=== PATIENT | female | born 1960 | race Caucasian/White ===

== ENCOUNTER 2023-12-15 12:25 | Outpatient (RCR) | payer OTHER, SELFPAY ==
[2023-12-15] MEDS: ACTEMRA 100 MG IV (13:21)
[2023-12-15 13:28] VITALS: BP 133/54
== END 2023-12-29 23:59 | disposition home or self-care (01) ==
LOC: OID 12:25
PROVIDERS: ATTENDING PHYSICIAN Internal Medicine; FAMILY PHYSICIAN Family Medicine
DX: M05.79 Rheumatoid arthritis with rheumatoid factor of multiple sites without organ or systems involvement (principal)
CPT/HCPCS: 96413; J3262

== ENCOUNTER 2023-12-23 11:50 | Emergency (ER) | payer OTHER, SELFPAY ==
[2023-12-23 11:52] VITALS: BP 154/93
[2023-12-23 12:36] VITALS: BMI 43.4
--- NOTE | 2023-12-23 13:20 | EDRN ---
Earl DEWITT w/ pt at this time.
[2023-12-23 13:29] VITALS: BP 137/54
[2023-12-23] MEDS: PERCOCET 5/325 1 TABLET PO (13:41)
--- NOTE | 2023-12-23 14:01 | ED.GENMED ---
History of Present Illness
General
Chief Complaint: Musculo-Skeletal Complaint
Source: patient
Exam Limitations: none
Time Seen by Provider: 12/23/23 13:15
Nursing documentation reviewed up to this point in time: agreed with
Travel History
Have you had any contact with someone who has COVID-19?: No
Do you have any symptoms of coronavirus? Fever > 100 degrees, chills, cough, shortness of breath, sore throat, loss of taste or smell, muscle aches, or headache?: No
History of Present Illness
History of Present Illness:
63-year-old female with past medical history of diabetes, hypothyroidism, ovarian cyst, asthma presenting to the emergency department today with concerns of right-sided knee discomfort after feeling a popping sensation last night as well as this
morning also EMS noticed a popping sensation when transferring her today. She has had multiple knee surgeries in the past. Denies any additional symptoms or concerns no fevers or systemic symptoms no numbness or weakness
Past History
Past History
ED Past Medical History: HTN, Hypercholesterolemia, Hypothyroidism and Other (Arthritis)
ED Past Surgical History: Orthopedic
Social History
Tobacco: Non-smoker
Alcohol: None
Drug: None
Personal: Single
Living: alone
Employment: Other
Family History
Family History: Other
Review of Systems
Review of Systems
Allergies reviewed?: Yes
All Other Systems: ROS reviewed and negative except as documented in HPI and ROS
Phy Exam
Physical Exam
Physical Exam:
GENERAL: Alert , in no apparent distress
EYE: pupils equal and reactive
NECK: Supple, no significant adenopathy.
ENT: o/p clr, mmm.
CARDIAC: Regular rate and rhythm .
LUNGS: Clear breath sounds bilaterally, no acute respiratory distress, no wheezes/rales/rhonchi
ABDOMEN: Soft, without focal tenderness, no r/g, no cvat
NEUROLOGICAL: Alert and oriented, no focal neuro deficits
SKIN: Warm and dry, skin intact.
MUSCULOSKELETAL: Female minimal swelling to the right knee able to range at the knee.. No popping sensation. Normal distal pulses normal ankle and hip examination a, well perfused.
PSYCH: Normal and appropriate interaction.
Course
Orders/Labs/Results
Orders:
Orders
12/23/23 12:02
CR Knee- Right 4 Or More View* Urgent
Comment:
Reason For Exam: pain, 'felt a pop'
12/23/23 13:26
Knee Immobilizer Right-Treatme ONCE
Walker [Treatment- Walker] ONCE
Oxycodone/Acetaminophen [Percocet 5/325] 1 tablet PO NOW STA
Vital Signs
Initial and Last Documented VS:
Initial Vital Signs
Temp Pulse Resp BP Pulse Ox
98.3 F 73 18 154/93 98
12/23/23 11:52 12/23/23 11:52 12/23/23 11:52 12/23/23 11:52 12/23/23 11:52
Last Documented Vital Signs
Temp Pulse Resp BP Pulse Ox
98.3 F 67 16 137/54 97
12/23/23 11:52 12/23/23 13:29 12/23/23 13:29 12/23/23 13:29 12/23/23 13:29
MDM/Problems Addressed
MDM/Problems Addressed:
63-year-old female presenting to the emergency department with concern of popping sensation to the knee on the right side last night and today. Also has had ongoing pain. Has had multiple knee replacements. Here x-ray without signs of acute
abnormality examination reveals small mount of swelling but good range of motion no evidence of septic arthritis considering the abrupt nature and popping sensation septic arthritis seems to be very unlikely culprit of patient's symptoms at this
time I feel she does not require a tap at this time. Patient was put in a knee immobilizer and able to ambulate she was advised for close orthopedic follow-up return precautions given.
*Critical Care Note
Total Time (30-74mins, 75-104mins- exclusive of procedures): Not Applicable
ED Attending Note
-
Portions of this chart may have been created with voice recognition software.� Occasional wrong word or��sound alike� substitutions may have occurred due to the inherent limitations of voice recognition software.
Discharge Plan
Departure
Patient Disposition: Home (Routine Discharge)
Date of Disposition: 12/23/23
Time of Disposition: 14:32
Patient with high blood pressure during this ER visit?: No
Condition: Good
Covid-19: Not Applicable
Discharge Problem:
Pain in right knee
Instructions: Knee Immobilizer (DC), Knee Pain (DC)
Prescriptions:
New
oxycodone-acetaminophen [Percocet] 5-325 mg tablet
1 tab PO Q6H PRN (Reason: Pain) Qty: 7 0RF
No Action
multivitamin [Multi-Day] 1 EACH tablet
0.5 tab PO BID
methotrexate sodium 2.5 MG tablet
20 mg PO .WEEKLYSUN
aspirin 81 MG tablet,chewable
81 mg PO DAILY
metformin 1,000 MG tablet extended release 24hr
1,000 mg PO BID
cholecalciferol (vitamin D3) 1,000 UNITS tablet
1,000 units PO HS
levothyroxine 125 MCG tablet
125 mcg PO DAILY
escitalopram oxalate 10 MG tablet
10 mg PO HS
meloxicam [Mobic] 15 MG tablet
15 mg PO DAILY
gabapentin 300 MG capsule
300 mg PO DAILY
fexofenadine [Lizet] 180 MG tablet
180 mg PO HS
omeprazole 40 MG capsule,delayed release(DR/EC)
40 mg PO DAILY
simvastatin 40 MG tablet
40 mg PO HS
omega 7-ded-aun-fish oil [Fish Oil] 1 EACH capsule
1 ea PO HS
Folic Acid 0.8 MG Tablet
0.8 mg PO DAILY
cyanocobalamin (vitamin B-12) 1,000 MCG tablet
1,000 mcg PO DAILY
amlodipine 10 MG tablet
10 mg PO HS
zolpidem 10 MG tablet
10 mg PO HS
losartan-hydrochlorothiazide 1 EACH tablet
1 ea PO DAILY
melatonin 5 MG tablet
5 mg PO HS
Actemra
800 mg INFUSION MONTHLY
Patient Comments:
800 MG
nitroglycerin 0.4 MG tablet, sublingual
0.4 mg sublingual [id number] PRN (Reason: chest pain) Qty: 25 5RF
Ozempic 0.25 mg or 0.5 mg(2 mg/1.5 mL) Pen Injector
0.5 mg SC QWEEK
Patient Comments:
every
Rx Instructions:

Referrals:
Darlyn Carbajal MD [Family Provider] -
Activity Restrictions/Additional Instructions:
You came to the emergency department today with concerns of knee discomfort. Here your x-ray looks fine but there is likely an issue with your hardware. Please follow closely with [facility] and use the protective devices you are provided in the
meantime. Return to the emergency department for any worsening, new or concerning symptoms.
Interventions
Interventions:
*Risk Screen - Suicide Last Done: 12/23/23 12:10
*General Assessment Last Done: 12/23/23 11:52
*Neglect/Abuse Screening Last Done: 12/23/23 12:10
ED- Fall Risk Assessment Last Done: 12/23/23 12:10
*ED COVID-19 Vaccine History Last Done: 12/23/23 11:52
ED-Musculoskeletal Assessment Last Done: 12/23/23 12:36
--- NOTE | 2023-12-23 14:34 | EDRN ---
Earl Henley PA w/ pt at this time. Pt states since percocet pain has decreased from 07/10 to 03/09.
== END 2023-12-23 14:45 | disposition home or self-care (01) ==
LOC: EMR 11:50
PROVIDERS: EMERGENCY PHYSICIAN Emergency Medicine; FAMILY PHYSICIAN Family Medicine
DX: M25.561 Pain in right knee (principal)
CPT/HCPCS: 99283; 29505; 73564

== ENCOUNTER 2024-01-12 12:35 | Outpatient (RCR) | payer OTHER, SELFPAY ==
[2024-01-12 13:06] VITALS: BMI 42.8
[2024-01-12 13:12] VITALS: BP 128/58
[2024-01-12] MEDS: ACTEMRA 100 MG IV (13:17)
[2024-01-12 14:25] VITALS: BP 126/48
== END 2024-01-13 10:27 | disposition home or self-care (01) ==
LOC: OID 12:35
PROVIDERS: ATTENDING PHYSICIAN Internal Medicine; FAMILY PHYSICIAN Family Medicine
DX: M05.79 Rheumatoid arthritis with rheumatoid factor of multiple sites without organ or systems involvement (principal)
CPT/HCPCS: 96413; J3262

== ENCOUNTER 2024-03-08 12:30 | Outpatient (RCR) | payer OTHER, SELFPAY ==
[2024-03-08 13:05] VITALS: BP 126/55
[2024-03-08] MEDS: ACTEMRA 100 MG IV (13:15)
== END 2024-03-09 10:08 | disposition home or self-care (01) ==
LOC: OID 12:30
PROVIDERS: ATTENDING PHYSICIAN Internal Medicine; FAMILY PHYSICIAN Family Medicine
DX: M05.79 Rheumatoid arthritis with rheumatoid factor of multiple sites without organ or systems involvement (principal)
CPT/HCPCS: 96365; J3262

== ENCOUNTER 2024-04-04 12:33 | Outpatient (RCR) | payer OTHER, SELFPAY ==
[2024-04-04 13:00] VITALS: BP 121/44
[2024-04-04] MEDS: ACTEMRA 100 MG IV (13:24)
== END 2024-04-05 08:50 | disposition home or self-care (01) ==
LOC: OID 12:33
PROVIDERS: ATTENDING PHYSICIAN Internal Medicine; FAMILY PHYSICIAN Family Medicine
DX: M05.79 Rheumatoid arthritis with rheumatoid factor of multiple sites without organ or systems involvement (principal)
CPT/HCPCS: 96365; J3262

== ENCOUNTER 2024-05-15 13:23 | Outpatient (RCR) | payer OTHER, SELFPAY ==
[2024-05-15] MEDS: ACTEMRA 100 MG IV (13:53)
[2024-05-15 13:58] VITALS: BP 128/66
== END 2024-05-16 08:16 | disposition home or self-care (01) ==
LOC: OID 13:23
PROVIDERS: ATTENDING PHYSICIAN Internal Medicine; FAMILY PHYSICIAN Family Medicine
DX: M05.79 Rheumatoid arthritis with rheumatoid factor of multiple sites without organ or systems involvement (principal)
CPT/HCPCS: 96365; J3262

== ENCOUNTER 2024-06-12 12:31 | Outpatient (RCR) | payer OTHER, SELFPAY ==
[2024-06-12] MEDS: ACTEMRA 100 MG IV (13:37)
[2024-06-12 13:43] VITALS: BP 143/44
== END 2024-06-13 08:13 | disposition home or self-care (01) ==
LOC: OID 12:31
PROVIDERS: ATTENDING PHYSICIAN Internal Medicine; FAMILY PHYSICIAN Family Medicine
DX: M05.79 Rheumatoid arthritis with rheumatoid factor of multiple sites without organ or systems involvement (principal)
CPT/HCPCS: 96365; J3262

== ENCOUNTER 2024-06-28 10:44 | Emergency (ER) | payer OTHER, SELFPAY ==
[2024-06-28 10:57] VITALS: BP 151/66
--- NOTE | 2024-06-28 11:01 | ED.PDOC.TRB ---
ED Provider Triage
-
Fell outside of her apartment this AM has lower back pain. See in in triage. Tender to lower lumbar spine. Xrays ordered. no head strike. History of L1 fracture.
--- NOTE | 2024-06-28 12:35 | ED.GENMED ---
History of Present Illness
<Neli Nash PA-C - Last Filed: 06/28/24 18:36>
General
Chief Complaint: Fall
Source: patient
Exam Limitations: none
Time Seen by Provider: 06/28/24 12:34
Nursing documentation reviewed up to this point in time: agreed with
History of Present Illness
History of Present Illness:
This is a 63-year-old female with a past medical history of rheumatoid arthritis, osteoarthritis presenting emergency department today with concerns of low back pain following a fall. Patient states that she has had problems with back pain in the
past and her pain has been relatively well-controlled until she had a fall today. Patient reports that she is walking outside and she does not recall exactly how she fell but she states that she fell straight down onto her buttocks. Patient now
complains of low back pain that radiates into her right leg. Patient denies any sacral pain or buttocks pain. Patient has any hip or pelvic pain. Patient denies any fevers or chills, headache, neck pain, urinary or fecal incontinence, saddle
paresthesias, recent spinal injections. Patient states that she is concerned that she might have a new compression fracture. Patient denies any head trauma with the fall, denies any lightheadedness or dizziness prior to the fall causing her to
fall, denies any chest pain or shortness of breath. Patient is able to bear weight and walk. Patient denies any paresthesias or loss of sensation in her leg.
Past History
<Neli Nash PA-C - Last Filed: 06/28/24 18:36>
Past History
ED Past Medical History: HTN, Hypercholesterolemia, Hypothyroidism and Other (Arthritis)
ED Past Surgical History: Orthopedic
Social History
Tobacco: Non-smoker
Alcohol: None
Drug: None
Personal: Single
Living: alone
Employment: Other
Family History
Family History: Other
Review of Systems
<Neli Nash PA-C - Last Filed: 06/28/24 18:36>
Review of Systems
All Other Systems: ROS reviewed and negative except as documented in HPI and ROS
Phy Exam
<Neli Nash PA-C - Last Filed: 06/28/24 18:36>
Physical Exam
Physical Exam:
General: Patient is well appearing and in no acute distress; non-toxic
Skin: Warm and dry, no rashes or lesions
Head: Normocephalic, atraumatic
Eyes: Sclera non-icteric. EOMs intact.
Cardiac: Regular rate
Peripheral Vascular: No lower extremity swelling or edema
Pulm: Normal respiratory effort
Musculoskeletal: No midline lumbar spinal tenderness. No sacral tenderness palpation. No tenderness palpation of bilateral hip joints. No pain with passive range of motion of lower extremities.
Neuro: CN II-XII intact, no focal neurologic deficits. 5 out of 5 strength in bilateral upper and lower extremities.
Psychiatric: Appropriate mood and affect.
Course
<Neli Nash PA-C - Last Filed: 06/28/24 18:36>
Orders/Labs/Results
Orders:
Orders
06/28/24 11:01
CR Lumbar Spine 2 Or 3 Views Urgent
Comment:
Reason For Exam: fall, lower back pain
Vital Signs
Initial and Last Documented VS:
Initial Vital Signs
Temp Pulse Resp BP Pulse Ox
97.8 F 63 20 151/66 99
06/28/24 10:57 06/28/24 10:57 06/28/24 10:57 06/28/24 10:57 06/28/24 10:57
Last Documented Vital Signs
Temp Pulse Resp BP Pulse Ox
97.8 F 63 20 151/66 99
06/28/24 10:57 06/28/24 10:57 06/28/24 10:57 06/28/24 10:57 06/28/24 10:57
<Mendoza Bush DO - Last Filed: 06/28/24 19:46>
Orders/Labs/Results
Orders:
Orders
06/28/24 11:01
CR Lumbar Spine 2 Or 3 Views Urgent
Comment:
Reason For Exam: fall, lower back pain
Vital Signs
Initial and Last Documented VS:
Initial Vital Signs
Temp Pulse Resp BP Pulse Ox
97.8 F 63 20 151/66 99
06/28/24 10:57 06/28/24 10:57 06/28/24 10:57 06/28/24 10:57 06/28/24 10:57
Last Documented Vital Signs
Temp Pulse Resp BP Pulse Ox
97.8 F 63 20 151/66 99
06/28/24 10:57 06/28/24 10:57 06/28/24 10:57 06/28/24 10:57 06/28/24 10:57
<Neli Nash PA-C - Last Filed: 06/28/24 18:36>
MDM/Problems Addressed
Differential Diagnosis Includes:
Differentials include lumbar compression fracture, hip adductor muscle strain, herniated nucleus pulposus, gluteal muscle contusion
MDM/Problems Addressed:
Fall:
63-year-old female past medical history of rheumatoid arthritis presenting emergency department today with low back pain following falling down on her bottom. Patient not hit her head at the time, did not syncopized. She has no neck pain. She has
no chest pain or shortness of breath. Patient is concerned that she has a new compression fracture. Did obtain plain films of the back which demonstrated a compression conformity of the endplate of L1 however patient knows about this and states
that she had a prior injury. No new fracture is noted. Considering patient has no red flag back symptoms, considering I was able to observe her ambulate without any difficulties, I believe she is stable for discharge at time with outpatient
follow-up. Patient was well-known to [facility] orth[facility]. Patient is limited in what she can take for pain, she says she tolerates Percocet well. I did send a few tablets for her to the pharmacy. Patient stable for discharge.
Chronic conditions affecting care:
Rheumatoid arthritis
<Neli Nash PA-C - Last Filed: 06/28/24 18:36>
*Pulse Oximetry
Patient hypoxic: no
*Critical Care Note
Total Time (30-74mins, 75-104mins- exclusive of procedures): Not Applicable
Data Reviewed
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
Source: patient and records
Prescriptions/Medications Considered But Not Given:
n/a
Further Testing Considered But Not Given:
n/a
<Neli Nash PA-C - Last Filed: 06/28/24 18:36>
Patient Management
Escalation/DeEscalation of care consider admission/obs:
Admit not indicated, patient stable for discharge
ED Attending Note
<ISHAN Dias Last Filed: 06/28/24 18:36>
-
Portions of this chart may have been created with voice recognition software.� Occasional wrong word or��sound alike� substitutions may have occurred due to the inherent limitations of voice recognition software.
<Mendoza Bush DO - Last Filed: 06/28/24 19:46>
ED Attending Note
Patient seen and examined by attending physician: Yes
I performed the substantive portion of visit, reviewed & personally made and approve the management plan that is documented in note by myself or LILLY.: Yes
ED Attending Note:
Patient is a 63-year-old female with a history of rheumatoid arthritis and fibromyalgia who fell onto her buttocks today. Partially in the mulch in part only on cement step. Patient complains of pain. Patient had L1 compression fracture 1 to 2
months ago. Patient denies incontinence, numbness, paresthesia or weakness. On physical exam the patient does appear to be uncomfortable with mild diffuse lumbar spine tenderness. X-ray shows the old L1 fracture but nothing new. Patient will be
given pain medication and discharge.
Discharge Plan
Departure
Patient Disposition: Home (Routine Discharge)
Date of Disposition: 06/28/24
Time of Disposition: 12:58
Patient with high blood pressure during this ER visit?: Yes
Condition: Good
Discharge Problem:
Strain of lumbar paraspinal muscle
Instructions: Low back pain in adults, BLOOD PRESSURE
Prescriptions:
New
oxycodone-acetaminophen [Percocet] 5-325 mg tablet
1 tab PO Q6HPRN PRN (Reason: pain) Qty: 8 0RF
No Action
multivitamin [Multi-Day] 1 EACH tablet
0.5 tab PO BID
aspirin 81 MG tablet,chewable
81 mg PO DAILY
metformin 1,000 MG tablet extended release 24hr
1,000 mg PO BID
cholecalciferol (vitamin D3) 1,000 UNITS tablet
1,000 units PO HS
levothyroxine 125 MCG tablet
125 mcg PO DAILY
escitalopram oxalate 10 MG tablet
10 mg PO HS
meloxicam [Mobic] 15 MG tablet
15 mg PO DAILY
gabapentin 300 MG capsule
300 mg PO DAILY
fexofenadine [Lizet] 180 MG tablet
180 mg PO HS
omeprazole 40 MG capsule,delayed release(DR/EC)
40 mg PO DAILY
simvastatin 40 MG tablet
40 mg PO HS
omega 8-gbp-kgt-fish oil [Fish Oil] 1 EACH capsule
1 ea PO HS
Folic Acid 0.8 MG Tablet
0.8 mg PO DAILY
cyanocobalamin (vitamin B-12) 1,000 MCG tablet
1,000 mcg PO DAILY
amlodipine 10 MG tablet
10 mg PO HS
zolpidem 10 MG tablet
10 mg PO HS
losartan-hydrochlorothiazide 1 EACH tablet
1 ea PO DAILY
Actemra
800 mg IV MONTHLY
Patient Comments:
800 MG
nitroglycerin 0.4 MG tablet, sublingual
0.4 mg sublingual [id number] PRN (Reason: chest pain) Qty: 25 5RF
Ozempic 0.25 mg or 0.5 mg(2 mg/1.5 mL) Pen Injector
0.5 mg SC .TUESDAY
Patient Comments:
every
Rx Instructions:

leflunomide 20 mg Tablet
20 mg PO DAILY
ipratropium-albuterol 0.5 mg-3 mg(2.5 mg base)/3 mL Solution For Nebulization
3 ml INHALATION .Q6H PRN (Reason: sob)
benzonatate 100 mg Capsule
100 mg PO TID
fluticasone propionate [Flonase] 50 mcg/actuation [place],Suspension
2 spray INTRANASAL DAILY
baclofen 5 mg Tablet
5 mg PO TID
Referrals:
Darlyn Carbajal MD [Family Provider] -
Activity Restrictions/Additional Instructions:
Please return to the emergency department should you experience fevers or chills, headaches, neck pain, numbness or tingling in genital region, urinary incontinence, fecal incontinence, difficulty walking, further injuries, syncopal episodes, chest
pain, shortness of health, or any other signs or symptoms concerning to you.
Percocet has been sent to your pharmacy. You can take 1 tablet every 6 hours as needed for pain.
Please follow-up with your orthopedist.
Interventions
Interventions:
*Risk Screen - Suicide Last Done: 06/28/24 11:55
*Neglect/Abuse Screening Last Done: 06/28/24 11:55
*Nursing Disposition Last Done: 06/28/24 13:45
ED-Musculoskeletal Assessment Last Done: 06/28/24 11:55
ED- Neurological Assessment Last Done: 06/28/24 11:55
ED-Skin Assessment Last Done: 06/28/24 11:55
Discharge Date and Time
Discharge Date/Time: 06/28/24 13:45
Print Language: MARSHALLESE
== END 2024-06-28 13:45 | disposition home or self-care (01) ==
LOC: EMR 10:44
PROVIDERS: EMERGENCY PHYSICIAN Emergency Medicine; FAMILY PHYSICIAN Family Medicine
DX: S39.012A Strain of muscle, fascia and tendon of lower back, initial encounter (principal); W19.XXXA Unspecified fall, initial encounter; Y93.01 Activity, walking, marching and hiking; M79.7 Fibromyalgia; M06.9 Rheumatoid arthritis, unspecified; E11.36 Type 2 diabetes mellitus with diabetic cataract; M48.56XA Collapsed vertebra, not elsewhere classified, lumbar region, initial encounter for fracture; F41.9 Anxiety disorder, unspecified; F32.A Depression, unspecified; I10 Essential (primary) hypertension; J45.909 Unspecified asthma, uncomplicated; E78.00 Pure hypercholesterolemia, unspecified; E03.9 Hypothyroidism, unspecified; Z96.611 Presence of right artificial shoulder joint; Z79.82 Long term (current) use of aspirin; Z88.1 Allergy status to other antibiotic agents; Z88.8 Allergy status to other drugs, medicaments and biological substances
CPT/HCPCS: 99283; 72100

== ENCOUNTER 2024-07-01 23:50 | Emergency (ER) | payer OTHER, SELFPAY ==
[2024-07-01 23:55] VITALS: BP 168/78; BMI 42.5
[2024-07-02 00:10] VITALS: BP 158/66
--- NOTE | 2024-07-02 01:08 | ED.GENMED ---
History of Present Illness
General
Chief Complaint: Skin Surface Trauma
Time Seen by Provider: 07/02/24 00:10
History of Present Illness
History of Present Illness:
64-year-old female presents the emergency department for evaluation of bleeding from a chronic wound to the right medial ankle. The wound began bleeding tonight which is not typical, has stopped on arrival. She follows with [facility] wound [facility]
for the past 6 weeks. She has chronic pain associated with this wound and has not taken her Percocet tonight
Past History
Past History
ED Past Medical History: HTN, Hypercholesterolemia, Hypothyroidism and Other (Arthritis)
ED Past Surgical History: Orthopedic
Social History
Tobacco: Non-smoker
Alcohol: None
Drug: None
Personal: Single
Living: alone
Employment: Other
Family History
Family History: Other
Review of Systems
Review of Systems
Allergies reviewed?: Yes
All Other Systems: ROS reviewed and negative except as documented in HPI and ROS
Phy Exam
Physical Exam
Physical Exam:
GEN: Well appearing, NAD, WDWN
HEENT: Oral mucosa moist, no scleral icterus
Cardiac: Regular rate
Lung: No respiratory distress, no tachypnea
MSK: No gross deformity or injuries
Skin: Good color, no pallor or jaundice, no rashes. 2 cm x 2 cm ulceration to the right medial ankle with clot at the wound base, no active bleeding
Neuro: AO x3, moves all extremities freely
Psych: Calm, cooperative
Course
Orders/Labs/Results
Orders:
Orders
07/02/24 01:11
Oxycodone/Acetaminophen [Percocet 5/325] 1 tablet PO NOW STA
Vital Signs
Initial and Last Documented VS:
Initial Vital Signs
Temp Pulse Resp BP Pulse Ox
98.2 F 70 16 168/78 96
07/01/24 23:55 07/01/24 23:55 07/01/24 23:55 07/01/24 23:55 07/01/24 23:55
Last Documented Vital Signs
Temp Pulse Resp BP Pulse Ox
98.2 F 70 16 158/66 95
07/01/24 23:55 07/01/24 23:55 07/01/24 23:55 07/02/24 00:10 07/02/24 00:10
MDM/Problems Addressed
MDM/Problems Addressed:
Wound redressed with Xeroform and silicone dressing, continue outpatient wound care
*Critical Care Note
Total Time (30-74mins, 75-104mins- exclusive of procedures): Not Applicable
ED Attending Note
-
Portions of this chart may have been created with voice recognition software.� Occasional wrong word or��sound alike� substitutions may have occurred due to the inherent limitations of voice recognition software.
Discharge Plan
Departure
Patient Disposition: Home (Routine Discharge)
Date of Disposition: 07/02/24
Time of Disposition: 01:10
Patient with high blood pressure during this ER visit?: No
Discharge Problem:
Chronic wound of extremity
Instructions: Wound Care (DC)
Prescriptions:
No Action
multivitamin [Multi-Day] 1 EACH tablet
0.5 tab PO BID
aspirin 81 MG tablet,chewable
81 mg PO DAILY
metformin 1,000 MG tablet extended release 24hr
1,000 mg PO BID
cholecalciferol (vitamin D3) 1,000 UNITS tablet
1,000 units PO HS
levothyroxine 125 MCG tablet
125 mcg PO DAILY
escitalopram oxalate 10 MG tablet
10 mg PO HS
meloxicam [Mobic] 15 MG tablet
15 mg PO DAILY
gabapentin 300 MG capsule
300 mg PO DAILY
fexofenadine [Lizet] 180 MG tablet
180 mg PO HS
omeprazole 40 MG capsule,delayed release(DR/EC)
40 mg PO DAILY
simvastatin 40 MG tablet
40 mg PO HS
omega 7-dkk-kib-fish oil [Fish Oil] 1 EACH capsule
1 ea PO HS
Folic Acid 0.8 MG Tablet
0.8 mg PO DAILY
cyanocobalamin (vitamin B-12) 1,000 MCG tablet
1,000 mcg PO DAILY
amlodipine 10 MG tablet
10 mg PO HS
zolpidem 10 MG tablet
10 mg PO HS
losartan-hydrochlorothiazide 1 EACH tablet
1 ea PO DAILY
Actemra
800 mg IV MONTHLY
Patient Comments:
800 MG
nitroglycerin 0.4 MG tablet, sublingual
0.4 mg sublingual [id number] PRN (Reason: chest pain) Qty: 25 5RF
Ozempic 0.25 mg or 0.5 mg(2 mg/1.5 mL) Pen Injector
0.5 mg SC .TUESDAY
Patient Comments:
every
Rx Instructions:

leflunomide 20 mg Tablet
20 mg PO DAILY
ipratropium-albuterol 0.5 mg-3 mg(2.5 mg base)/3 mL Solution For Nebulization
3 ml INHALATION .Q6H PRN (Reason: sob)
benzonatate 100 mg Capsule
100 mg PO TID
fluticasone propionate [Flonase] 50 mcg/actuation [place],Suspension
2 spray INTRANASAL DAILY
baclofen 5 mg Tablet
5 mg PO TID
oxycodone-acetaminophen [Percocet] 5-325 mg tablet
1 tab PO Q6HPRN PRN (Reason: pain) Qty: 8 0RF
Referrals:
Darlyn Carbajal MD [Family Provider] -
Interventions
Interventions:
*Risk Screen - Suicide Last Done: 07/01/24 23:55
*General Assessment Last Done: 07/01/24 23:55
*Neglect/Abuse Screening Last Done: 07/01/24 23:55
ED- Fall Risk Assessment Last Done: 07/01/24 23:59
*ED COVID-19 Vaccine History Last Done: 07/01/24 23:55
*Nursing Disposition Last Done: 07/02/24 01:29
ED-Skin Assessment Last Done: 07/01/24 23:59
Discharge Date and Time
Discharge Date/Time: 07/02/24 01:30
Print Language: MAURITANIAN
[2024-07-02] MEDS: PERCOCET 5/325 1 TABLET PO (01:14)
== END 2024-07-02 01:30 | disposition home or self-care (01) ==
LOC: EMR 23:50
PROVIDERS: EMERGENCY PHYSICIAN Emergency Medicine; FAMILY PHYSICIAN Family Medicine
DX: S91.001A Unspecified open wound, right ankle, initial encounter (principal); X58.XXXA Exposure to other specified factors, initial encounter; I10 Essential (primary) hypertension; E78.00 Pure hypercholesterolemia, unspecified; E03.9 Hypothyroidism, unspecified; M19.90 Unspecified osteoarthritis, unspecified site
CPT/HCPCS: 99282

== ENCOUNTER 2024-07-10 12:25 | Outpatient (RCR) | payer OTHER, SELFPAY ==
[2024-07-10 12:58] VITALS: BP 134/56
[2024-07-10] MEDS: ACTEMRA 100 MG IV (13:11)
== END 2024-07-11 11:04 | disposition home or self-care (01) ==
LOC: OID 12:25
PROVIDERS: ATTENDING PHYSICIAN Internal Medicine; FAMILY PHYSICIAN Family Medicine
DX: M05.79 Rheumatoid arthritis with rheumatoid factor of multiple sites without organ or systems involvement (principal)
CPT/HCPCS: 96413; J3262

== ENCOUNTER 2024-08-07 12:24 | Outpatient (RCR) | payer OTHER, SELFPAY ==
[2024-08-07] MEDS: ACTEMRA 100 MG IV (13:15)
[2024-08-07 13:22] VITALS: BP 140/47
== END 2024-08-08 08:32 | disposition home or self-care (01) ==
LOC: OID 12:24
PROVIDERS: ATTENDING PHYSICIAN Internal Medicine; FAMILY PHYSICIAN Family Medicine
DX: M05.79 Rheumatoid arthritis with rheumatoid factor of multiple sites without organ or systems involvement (principal)
CPT/HCPCS: 96365; J3262

== ENCOUNTER 2024-09-06 12:29 | Outpatient (RCR) | payer OTHER, SELFPAY ==
[2024-09-06] MEDS: ACTEMRA 100 MG IV (13:18)
[2024-09-06 13:27] VITALS: BP 140/58
== END 2024-09-07 09:19 | disposition home or self-care (01) ==
LOC: OID 12:29
PROVIDERS: ATTENDING PHYSICIAN Internal Medicine; FAMILY PHYSICIAN Family Medicine
DX: M05.79 Rheumatoid arthritis with rheumatoid factor of multiple sites without organ or systems involvement (principal)
CPT/HCPCS: 96365; J3262

== ENCOUNTER → 2024-09-25 19:21 | Outpatient (REF) | payer OTHER, SELFPAY | LOC: MRI 19:21 | PROVIDERS: ATTENDING PHYSICIAN Specialist; FAMILY PHYSICIAN Family Medicine | DX: R42 Dizziness and giddiness (principal); R29.6 Repeated falls | CPT/HCPCS: 70551 ==

== ENCOUNTER 2024-10-02 12:28 | Outpatient (RCR) | payer OTHER, SELFPAY ==
[2024-10-02] MEDS: ACTEMRA 100 MG IV (13:36)
[2024-10-02 13:41] VITALS: BP 123/54
== END 2024-10-03 10:49 | disposition home or self-care (01) ==
LOC: OID 12:28
PROVIDERS: ATTENDING PHYSICIAN Internal Medicine; FAMILY PHYSICIAN Family Medicine
DX: M05.79 Rheumatoid arthritis with rheumatoid factor of multiple sites without organ or systems involvement (principal)
CPT/HCPCS: 96365; J3262

== ENCOUNTER 2024-10-21 13:07 | Emergency (ER) | payer OTHER, SELFPAY ==
[2024-10-21 13:10] VITALS: BP 142/66
[2024-10-21 13:39] LABS: % Basophils 1.1 % (0-2); % Eosinophils 2.4 % (0-6); % Immature Granulocytes 0.4 % (0-0.5); % Lymphocytes 27.9 % (20.5-51.1); % Monocytes 15.1 % (1.7-9.3); % Neutrophils 53.1 % (42.2-75.2); Absolute Basophils 0.1 10^3/uL (0-0.2); Absolute Eosinophils 0.1 10^3/uL (0-0.7); Absolute Lymphocytes 1.3 10^3/uL (1.2-3.4); Absolute Monocytes 0.7 10^3/uL (0.1-0.6); Absolute Neutrophils 2.4 10^3/uL (1.4-6.5); Hematocrit 39.5 % (37.0-47.0); Hemoglobin 13.3 g/dL (12.0-16.0); Mean Corp Hgb Conc. 33.7 g/dL (33.0-37.0); Mean Corpuscular Hgb 32.2 pg (27.0-31.0); Mean Corpuscular Volume 95.6 fL (81.0-99.0); Mean Platelet Volume 10.5 fL (7.4-10.4); Nucleated Red Blood Cells % 0 %; Platelet Count 142 10^3/uL (130-400); Red Blood Cell Count 4.13 10^6/uL (4.20-5.40); Red Cell Dist. Width 12.5 % (11.5-14.5); White Blood Cell Count 4.6 10^3/uL (4.8-10.8)
[2024-10-21 14:28] VITALS: BP 140/63
--- NOTE | 2024-10-21 14:55 | ED.GENMED ---
History of Present Illness
General
Chief Complaint: Weakness
Source: patient
Exam Limitations: none
Time Seen by Provider: 10/21/24 14:04
Nursing documentation reviewed up to this point in time: agreed with
History of Present Illness
History of Present Illness:
Patient presents to ED for evaluation secondary to diffuse headache along with dizziness, noted upon waking up this morning. Denies nausea or vomiting. Denies fever. Denies neck pain. Denies sore throat. Denies recent illness. Of note, patient
recently had an MRI of brain which revealed likely stroke, when discussed with her neurologist last week. Patient has been experiencing right-sided weakness. Patient is scheduled to have MRI with contrast, as there were some findings that were
unclear. Denies difficulty with speech. Denies loss of sensation or weakness. Denies blurred vision. 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
with her eye movement.
Past History
Past History
ED Past Medical History: HTN, Hypercholesterolemia, Hypothyroidism and Other (Arthritis)
ED Past Surgical History: Orthopedic
Social History
Tobacco: Non-smoker
Alcohol: None
Drug: None
Personal: Single
Living: alone
Employment: Other
Family History
Family History: Other
Review of Systems
Review of Systems
Allergies reviewed?: Yes
All Other Systems: ROS reviewed and negative except as documented in HPI and ROS
Constitutional: Reports no symptoms
EENT: Reports no symptoms
Respiratory: Reports no symptoms
Cardiac: Reports no symptoms
ABD/GI: Reports no symptoms
Musculoskeletal: Reports no symptoms
Skin: Reports no symptoms
Neurological: Reports dizzy and headache
Phy Exam
Physical Exam
Physical Exam:
Physical Exam
General: no apparent distress, not acutely ill. afebrile
Head: nc/at. eomi. lagging of left eye movement laterally noted
Neck: supple. normal range of motion.
Heart: s1/s2 regular rate and rhythm, no murmur.
Lungs: no acute respiratory distress. clear bilaterally
Abdomen: normal bowel sounds. not tender.
Neuro: alert and oriented. no focal sensory deficit. RUE/RLE: 4/5 motor strength noted
Skin: no rash
Psychiatric: well kept. interactive and cooperative
Extremities: no edema. no calf tenderness.
Course
Orders/Labs/Results
Orders:
Orders
10/21/24 13:17
Complete Blood Count/With Diff Urgent
10/21/24 14:54
CT Head W/o Iv Contrast Urgent
Comment:
Reason For Exam: headache w right sided weakness
10/21/24 14:55
Acetaminophen [Tylenol] 1,000 mg PO NOW STA
10/21/24 15:38
Comprehensive Metabolic Panel Urgent
10/21/24 17:49
Oxycodone/Acetaminophen [Percocet 5/325] 1 tablet PO NOW STA
10/21/24 17:50
Ibuprofen [Motrin] 400 mg PO NOW STA
Abnormal Lab Results
10/21/24 10/21/24 10/21/24
13:17 15:38 17:57
WBC 4.6 L 10^3/uL
(4.8-10.8)
RBC 4.13 L 10^6/uL
(4.20-5.40)
MCH 32.2 H pg
(27.0-31.0)
MPV 10.5 H fL
(7.4-10.4)
Absolute Monos (auto) 0.7 H 10^3/uL
(0.1-0.6)
Monocytes % 15.1 H %
(1.7-9.3)
Sodium 133 L mmol/L
(135-145)
Glucose 120 H mg/dl
(70-99)
ALT 39 H U/L
(0-35)
POC Glucose 114 H mg/dl
(70-99)
10/21/24 13:17
10/21/24 15:38
Vital Signs
Initial and Last Documented VS:
Initial Vital Signs
Temp Pulse Resp BP Pulse Ox
98.2 F 84 16 142/66 97
10/21/24 13:10 10/21/24 13:10 10/21/24 13:10 10/21/24 13:10 10/21/24 13:10
Last Documented Vital Signs
Temp Pulse Resp BP Pulse Ox
98.2 F 74 17 119/65 97
10/21/24 13:10 10/21/24 18:30 10/21/24 18:30 10/21/24 18:00 10/21/24 18:30
MDM/Problems Addressed
MDM/Problems Addressed:
CT head: No acute findings. Patient otherwise remains afebrile, helically stable, neurologically intact. Patient will be discharged home at this time, with recommendation to continue to follow-up with her neurologist for ongoing evaluation,
including already scheduled an outpatient MRI brain with contrast
*Critical Care Note
Total Time (30-74mins, 75-104mins- exclusive of procedures): Not Applicable
ED Attending Note
-
Portions of this chart may have been created with voice recognition software.� Occasional wrong word or��sound alike� substitutions may have occurred due to the inherent limitations of voice recognition software.
Discharge Plan
Departure
Patient Disposition: Home (Routine Discharge)
Date of Disposition: 10/21/24
Time of Disposition: 18:29
Patient with high blood pressure during this ER visit?: Yes
Condition: Good
Discharge Problem:
Headache
Instructions: Headaches in adults
Prescriptions:
No Action
multivitamin [Multi-Day] 1 EACH tablet
0.5 tab PO BID
aspirin 81 MG tablet,chewable
81 mg PO DAILY
metformin 1,000 MG tablet extended release 24hr
1,000 mg PO BID
cholecalciferol (vitamin D3) 1,000 UNITS tablet
1,000 units PO HS
levothyroxine 125 MCG tablet
125 mcg PO DAILY
escitalopram oxalate 10 MG tablet
15 mg PO HS
meloxicam [Mobic] 15 MG tablet
15 mg PO DAILY
gabapentin 300 MG capsule
300 mg PO DAILY
fexofenadine [Lizet] 180 MG tablet
180 mg PO HS
omeprazole 40 MG capsule,delayed release(DR/EC)
40 mg PO DAILY
simvastatin 40 MG tablet
40 mg PO HS
omega 1-ebu-czn-fish oil [Fish Oil] 1 EACH capsule
1 ea PO HS
Folic Acid 0.8 MG Tablet
0.8 mg PO DAILY
cyanocobalamin (vitamin B-12) 1,000 MCG tablet
1,000 mcg PO DAILY
amlodipine 10 MG tablet
10 mg PO HS
zolpidem 10 MG tablet
10 mg PO HS
losartan-hydrochlorothiazide 1 EACH tablet
1 ea PO DAILY
Actemra
800 mg IV MONTHLY
Patient Comments:
800 MG
nitroglycerin 0.4 MG tablet, sublingual
0.4 mg sublingual [id number] PRN (Reason: chest pain) Qty: 25 5RF
Ozempic 0.25 mg or 0.5 mg(2 mg/1.5 mL) Pen Injector
0.5 mg SC .TUESDAY
Patient Comments:
every
Rx Instructions:

leflunomide 20 mg Tablet
20 mg PO DAILY
ipratropium-albuterol 0.5 mg-3 mg(2.5 mg base)/3 mL Solution For Nebulization
3 ml INHALATION .Q6H PRN (Reason: sob)
benzonatate 100 mg Capsule
100 mg PO TID
fluticasone propionate [Flonase] 50 mcg/actuation [place],Suspension
2 spray INTRANASAL DAILY
baclofen 5 mg Tablet
5 mg PO TID
Referrals:
Darlyn Carbajal MD [Family Provider] -
Activity Restrictions/Additional Instructions:
As discussed, please continue to follow-up with your neurologist for continual evaluation and treatment, including already scheduled MRI brain with contrast, as an outpatient.
Interventions
Interventions:
*Risk Screen - Suicide Last Done: 10/21/24 13:10
*General Assessment Last Done: 10/21/24 13:10
*Neglect/Abuse Screening Last Done: 10/21/24 13:10
ED- Fall Risk Assessment Last Done: 10/21/24 14:32
*ED COVID-19 Vaccine History Last Done: 10/21/24 13:10
*Nursing Disposition Last Done: 10/21/24 18:49
ED- Pulmonary Assessment Last Done: 10/21/24 14:32
ED- Neurological Assessment Last Done: 10/21/24 14:32
ED- Cardiac Assessment Last Done: 10/21/24 14:32
Discharge Date and Time
Discharge Date/Time: 10/21/24 18:52
Print Language: ESTONIAN
[2024-10-21 15:00] VITALS: BP 134/49
[2024-10-21] MEDS: TYLENOL 1000 MG PO (15:52)
[2024-10-21 16:00] VITALS: BP 132/69
--- NOTE | 2024-10-21 16:00 | EDRN ---
CMP blood drawn in triage and was hemolyzed. Redrawn at 14:30 and again at 15:30 due to second specimen also hemolyzed.
[2024-10-21 16:03] LABS: ALT (SGPT) 39 U/L (0-35); AST (SGOT) 36 U/L (14-36); Alkaline Phosphatase 67 U/L (38-126); Blood Urea Nitrogen 17 mg/dl (7-17); Calcium 9.1 mg/dl (8.4-10.2); Carbon Dioxide 29 mmol/L (22-30); Chloride 100 mmol/L (98-107); Glucose 120 mg/dl (70-99); Sodium 133 mmol/L (135-145); Total Bilirubin 0.7 mg/dl (0.2-1.3); Total Protein 6.4 g/dl (6.3-8.2); eGFR > 60.00
[2024-10-21 16:08] VITALS: BMI 45.8
[2024-10-21 17:00] VITALS: BP 141/62
--- NOTE | 2024-10-21 17:50 | EDRN ---
Pt asking for crackers as has not eaten in a long time, prior to arrival. Pt also states her H/A remains 10/ at this time. Dr. Graham was informed and was in to see pt at this time and said to give medications he orders, give crackers to pt, and get
accucheck as pt is diabetic.
[2024-10-21 18:00] VITALS: BP 119/65
[2024-10-21] MEDS: MOTRIN 400 MG PO (18:01)
[2024-10-21] MEDS: PERCOCET 5/325 1 TABLET PO (18:03)
[2024-10-21 18:09] LABS: Glucose - Point of Care 114 mg/dl (70-99)
--- NOTE | 2024-10-21 18:46 | EDRN ---
Pt called her son and her daughter in law is coming to take her home.
== END 2024-10-21 18:52 | disposition home or self-care (01) ==
LOC: EMR 13:07
PROVIDERS: EMERGENCY PHYSICIAN Emergency Medicine; FAMILY PHYSICIAN Family Medicine
DX: R51.9 Headache, unspecified (principal); E78.00 Pure hypercholesterolemia, unspecified; E03.9 Hypothyroidism, unspecified; I10 Essential (primary) hypertension
CPT/HCPCS: 99284; 70450; 80053; 82962; 85025

== ENCOUNTER 2024-10-29 12:15 | Emergency (ER) | payer OTHER, SELFPAY ==
[2024-10-29 12:18] VITALS: BP 150/75
--- NOTE | 2024-10-29 14:05 | ED.GENMED ---
History of Present Illness
General
Chief Complaint: Skin Problem
Time Seen by Provider: 10/29/24 13:46
History of Present Illness
History of Present Illness:
64 yo female presents to the Emergency Department for evaluation of a worsening R medial ankle wound. Chronic wound since April, has reportedly only been on abx once. No fevers or chills. Visiting wound nurse advised pt come to ED. Wound has been
dressed since 1200 today and is nearly saturated w/ serosanguinous discharge.
Past History
Past History
ED Past Medical History: HTN, Hypercholesterolemia, Hypothyroidism and Other (Arthritis)
ED Past Surgical History: Orthopedic
Social History
Tobacco: Non-smoker
Alcohol: None
Drug: None
Personal: Single
Living: alone
Employment: Other
Family History
Family History: Other
Review of Systems
Review of Systems
Allergies reviewed?: Yes
All Other Systems: ROS reviewed and negative except as documented in HPI and ROS
Phy Exam
Physical Exam
Physical Exam:
GEN: Well appearing, NAD, WDWN
HEENT: Oral mucosa moist, no scleral icterus
Cardiac: Regular rate
Lung: No respiratory distress, no tachypnea
MSK: No gross deformity or injuries
Skin: Good color, no pallor or jaundice, no rashes. 3 cm x 2 cm ulcerated wound to the right medial ankle just superior posterior to the medial malleolus, no visible pulsatile structures, serosanguineous discharge noted, no surrounding erythema
Neuro: AO x3, moves all extremities freely
Psych: Calm, cooperative
Course
Orders/Labs/Results
Orders:
Orders
10/29/24 14:04
Ankle, Right 3 view CR [CR Ankle - Right Min 3 Views *] Urgent
Comment:
Reason For Exam: medial ankle wound
10/29/24 14:30
CRP [C-Reactive Protein] Urgent
Complete Blood Count/With Diff Urgent
Comprehensive Metabolic Panel Urgent
ESR [Erythrocyte Sed Rate] Urgent
Abnormal Lab Results
10/29/24
14:30
RBC 4.13 L 10^6/uL
(4.20-5.40)
MCH 32.4 H pg
(27.0-31.0)
Absolute Monos (auto) 0.7 H 10^3/uL
(0.1-0.6)
Monocytes % 12.5 H %
(1.7-9.3)
AST 37 H U/L
(14-36)
ALT 41 H U/L
(0-35)
10/29/24 14:30
10/29/24 14:30
Vital Signs
Initial and Last Documented VS:
Initial Vital Signs
Temp Pulse Resp BP Pulse Ox
97.6 F 68 18 150/75 99
10/29/24 12:18 10/29/24 12:18 10/29/24 12:18 10/29/24 12:18 10/29/24 12:18
Last Documented Vital Signs
Temp Pulse Resp BP Pulse Ox
97.6 F 68 18 150/75 99
10/29/24 12:18 10/29/24 12:18 10/29/24 12:18 10/29/24 12:18 10/29/24 12:18
MDM/Problems Addressed
MDM/Problems Addressed:
There are no signs of acute infection externally as there is no erythema or warmth. Negative inflammatory markers are reassuring against cellulitis and osteomyelitis. X-ray shows no bony lysis. Clinically do not suspect there is any need for
antibiotics. Uncertain etiology to the patient's acute pain, will prescribe pain medications and have her follow-up with wound care as an outpatient. She does have strong dorsalis pedis pulses and no evidence for pulsatile mass at the wound base
concerning for arterial invasion of the wound.
*Critical Care Note
Total Time (30-74mins, 75-104mins- exclusive of procedures): Not Applicable
ED Attending Note
-
Portions of this chart may have been created with voice recognition software.� Occasional wrong word or��sound alike� substitutions may have occurred due to the inherent limitations of voice recognition software.
Discharge Plan
Departure
Patient Disposition: Home (Routine Discharge)
Date of Disposition: 10/29/24
Time of Disposition: 16:10
Patient with high blood pressure during this ER visit?: No
Discharge Problem:
Chronic ulcer of right ankle
Instructions: Wound Care (DC)
Prescriptions:
New
oxycodone 5 mg tablet
5 mg PO Q8H PRN (Reason: Pain) Qty: 10 0RF
No Action
multivitamin [Multi-Day] 1 EACH tablet
0.5 tab PO BID
aspirin 81 MG tablet,chewable
81 mg PO DAILY
metformin 1,000 MG tablet extended release 24hr
1,000 mg PO BID
cholecalciferol (vitamin D3) 1,000 UNITS tablet
1,000 units PO HS
levothyroxine 125 MCG tablet
125 mcg PO DAILY
escitalopram oxalate 10 MG tablet
15 mg PO HS
meloxicam [Mobic] 15 MG tablet
15 mg PO DAILY
gabapentin 300 MG capsule
300 mg PO DAILY
fexofenadine [Lizet] 180 MG tablet
180 mg PO HS
omeprazole 40 MG capsule,delayed release(DR/EC)
40 mg PO DAILY
simvastatin 40 MG tablet
40 mg PO HS
omega 3-txk-jzn-fish oil [Fish Oil] 1 EACH capsule
1 ea PO HS
Folic Acid 0.8 MG Tablet
0.8 mg PO DAILY
cyanocobalamin (vitamin B-12) 1,000 MCG tablet
1,000 mcg PO DAILY
amlodipine 10 MG tablet
10 mg PO HS
zolpidem 10 MG tablet
10 mg PO HS
losartan-hydrochlorothiazide 1 EACH tablet
1 ea PO DAILY
Actemra
800 mg IV MONTHLY
Patient Comments:
800 MG
nitroglycerin 0.4 MG tablet, sublingual
0.4 mg sublingual [id number] PRN (Reason: chest pain) Qty: 25 5RF
Ozempic 0.25 mg or 0.5 mg(2 mg/1.5 mL) Pen Injector
0.5 mg SC .TUESDAY
Patient Comments:
every
Rx Instructions:

leflunomide 20 mg Tablet
20 mg PO DAILY
ipratropium-albuterol 0.5 mg-3 mg(2.5 mg base)/3 mL Solution For Nebulization
3 ml INHALATION .Q6H PRN (Reason: sob)
benzonatate 100 mg Capsule
100 mg PO TID
fluticasone propionate [Flonase] 50 mcg/actuation [place],Suspension
2 spray INTRANASAL DAILY
baclofen 5 mg Tablet
5 mg PO TID
Referrals:
Darlyn Carbajal MD [Family Provider] -
Interventions
Interventions:
*Risk Screen - Suicide Last Done: 10/29/24 12:18
*General Assessment Last Done: 10/29/24 12:18
*Neglect/Abuse Screening Last Done: 10/29/24 12:18
*ED COVID-19 Vaccine History Last Done: 10/29/24 14:31
*Nursing Disposition Last Done: 10/29/24 16:38
Discharge Date and Time
Discharge Date/Time: 10/29/24 16:38
Print Language: GUINEAN
[2024-10-29 14:49] LABS: % Basophils 0.7 % (0-2); % Eosinophils 1.8 % (0-6); % Immature Granulocytes 0.2 % (0-0.5); % Lymphocytes 26.9 % (20.5-51.1); % Monocytes 12.5 % (1.7-9.3); % Neutrophils 57.9 % (42.2-75.2); Absolute Eosinophils 0.1 10^3/uL (0-0.7); Absolute Lymphocytes 1.5 10^3/uL (1.2-3.4); Absolute Monocytes 0.7 10^3/uL (0.1-0.6); Absolute Neutrophils 3.3 10^3/uL (1.4-6.5); Hematocrit 39.6 % (37.0-47.0); Hemoglobin 13.4 g/dL (12.0-16.0); Mean Corp Hgb Conc. 33.8 g/dL (33.0-37.0); Mean Corpuscular Hgb 32.4 pg (27.0-31.0); Mean Corpuscular Volume 95.9 fL (81.0-99.0); Mean Platelet Volume 10.4 fL (7.4-10.4); Nucleated Red Blood Cells % 0 %; Platelet Count 145 10^3/uL (130-400); Red Blood Cell Count 4.13 10^6/uL (4.20-5.40); Red Cell Dist. Width 12.8 % (11.5-14.5); White Blood Cell Count 5.7 10^3/uL (4.8-10.8)
[2024-10-29 14:55] LABS: Erythrocyte Sed Rate 11 mm/hour (0-20)
[2024-10-29 14:59] LABS: ALT (SGPT) 41 U/L (0-35); AST (SGOT) 37 U/L (14-36); Albumin 4.3 g/dl (3.5-5.0); Alkaline Phosphatase 70 U/L (38-126); Blood Urea Nitrogen 14 mg/dl (7-17); Calcium 9.5 mg/dl (8.4-10.2); Carbon Dioxide 28 mmol/L (22-30); Chloride 101 mmol/L (98-107); Glucose 97 mg/dl (70-99); Potassium 4.1 mmol/L (3.5-5.1); Sodium 136 mmol/L (135-145); Total Bilirubin 1.1 mg/dl (0.2-1.3); Total Protein 6.9 g/dl (6.3-8.2); eGFR > 60.00
[2024-10-29 15:02] LABS: C-Reactive Protein < 5.00 mg/L (0.0-10.00)
== END 2024-10-29 16:38 | disposition home or self-care (01) ==
LOC: EMR 12:15
PROVIDERS: Physician Assistant; EMERGENCY PHYSICIAN Emergency Medicine; FAMILY PHYSICIAN Family Medicine
DX: L97.319 Non-pressure chronic ulcer of right ankle with unspecified severity (principal); I10 Essential (primary) hypertension; E78.00 Pure hypercholesterolemia, unspecified; E03.9 Hypothyroidism, unspecified; M19.90 Unspecified osteoarthritis, unspecified site; Z79.82 Long term (current) use of aspirin; Z88.1 Allergy status to other antibiotic agents; Z88.8 Allergy status to other drugs, medicaments and biological substances
CPT/HCPCS: 99283; 73610; 80053; 85025; 85652; 86140

== ENCOUNTER → 2024-10-30 11:33 | Outpatient (REF) | payer OTHER, SELFPAY | LOC: PAVMRI 11:33 | PROVIDERS: ATTENDING PHYSICIAN Specialist; PRIMARYCARE PHYSICIAN Family Medicine | DX: G91.2 (Idiopathic) normal pressure hydrocephalus (principal) | CPT/HCPCS: 70553; A9575 ==

== ENCOUNTER 2024-11-28 10:50 | Outpatient (RCR) | payer OTHER, MEDICARE, SELFPAY ==
[2024-11-01 13:00] VITALS: BP 136/59
[2024-11-01] MEDS: ACTEMRA 100 MG IV (13:16)
[2024-11-28] MEDS: ACTEMRA 100 MG IV (11:34)
[2024-11-28 11:46] VITALS: BP 115/83
[2024-11-28 12:40] VITALS: BP 128/54
== END 2024-11-30 23:59 | disposition home or self-care (01) ==
LOC: OID 10:50
PROVIDERS: ATTENDING PHYSICIAN Hospitalist; FAMILY PHYSICIAN Family Medicine
DX: M05.79 Rheumatoid arthritis with rheumatoid factor of multiple sites without organ or systems involvement (principal)
CPT/HCPCS: 96365; J3262

== ENCOUNTER 2024-12-26 11:31 | Outpatient (RCR) | payer OTHER, MEDICARE, SELFPAY ==
[2024-12-26 11:35] VITALS: BP 126/71
[2024-12-26] MEDS: ACTEMRA 100 MG IV (11:53)
== END 2024-12-27 10:07 | disposition home or self-care (01) ==
LOC: OID 11:31
PROVIDERS: ATTENDING PHYSICIAN Hospitalist; FAMILY PHYSICIAN Family Medicine
DX: M05.79 Rheumatoid arthritis with rheumatoid factor of multiple sites without organ or systems involvement (principal)
CPT/HCPCS: 96365; J3262

== ENCOUNTER 2025-01-22 12:28 | Outpatient (RCR) | payer OTHER, MEDICARE, SELFPAY ==
[2025-01-22 13:31] VITALS: BP 146/54
[2025-01-22] MEDS: ACTEMRA 100 MG IV (13:34)
== END 2025-01-23 08:30 | disposition home or self-care (01) ==
LOC: OID 12:28
PROVIDERS: ATTENDING PHYSICIAN Hospitalist; FAMILY PHYSICIAN Family Medicine
DX: M05.79 Rheumatoid arthritis with rheumatoid factor of multiple sites without organ or systems involvement (principal)
CPT/HCPCS: 96365; J3262

== ENCOUNTER 2025-02-18 12:44 | Outpatient (RCR) | payer OTHER, MEDICARE, SELFPAY ==
[2025-02-18] MEDS: ACTEMRA 100 MG IV (13:27)
[2025-02-18 13:29] VITALS: BP 145/56
== END 2025-02-19 08:00 | disposition home or self-care (01) ==
LOC: OID 12:44
PROVIDERS: ATTENDING PHYSICIAN Internal Medicine; FAMILY PHYSICIAN Family Medicine
DX: M05.79 Rheumatoid arthritis with rheumatoid factor of multiple sites without organ or systems involvement (principal)
CPT/HCPCS: 96365; J3262

== ENCOUNTER 2025-03-20 12:41 | Outpatient (RCR) | payer OTHER, MEDICARE, SELFPAY ==
[2025-03-20 13:18] VITALS: BP 128/48
[2025-03-20] MEDS: ACTEMRA 100 MG IV (13:45)
[2025-03-20 14:55] VITALS: BP 145/64
== END 2025-03-21 12:57 | disposition home or self-care (01) ==
LOC: OID 12:41
PROVIDERS: ATTENDING PHYSICIAN Internal Medicine; FAMILY PHYSICIAN Family Medicine
DX: M05.79 Rheumatoid arthritis with rheumatoid factor of multiple sites without organ or systems involvement (principal)
CPT/HCPCS: 96365; J3262

== ENCOUNTER 2025-04-17 12:56 | Outpatient (RCR) | payer MEDICARE, OTHER, SELFPAY ==
[2025-04-17 13:21] VITALS: BP 120/63
[2025-04-17] MEDS: ACTEMRA 100 MG IV (13:31)
== END 2025-04-29 23:59 | disposition home or self-care (01) ==
LOC: OID 12:56
PROVIDERS: ATTENDING PHYSICIAN Internal Medicine; FAMILY PHYSICIAN Family Medicine
DX: M05.79 Rheumatoid arthritis with rheumatoid factor of multiple sites without organ or systems involvement (principal)
CPT/HCPCS: 96365; 96413; J3262

== ENCOUNTER 2025-05-03 00:36 | Inpatient (IN) | payer MEDICARE, OTHER, SELFPAY ==
[2025-05-02 16:53] VITALS: BMI 41.5
[2025-05-02 16:56] VITALS: BP 110/72
--- NOTE | 2025-05-02 19:56 | ED.GENMED ---
History of Present Illness
General
Chief Complaint: Skin Problem
Time Seen by Provider: 05/02/25 19:08
History of Present Illness
History of Present Illness:
64-year-old female with history of rheumatoid arthritis, diabetes presenting for worsening rash to the left lower extremity. Patient notes symptoms started on Tuesday, 4 days ago. She went to go see her doctor, was started on a Medrol Dosepak. She
is on the fourth day, however notes that the rash is worsening. She went to her primary care doctor today, was told to come to the hospital for further evaluation. She does report that her doctor told her that her platelets were low. She does
report that her right leg is painful. Denies numbness or tingling. Denies chest pain or difficulty breathing. Denies any fever. Notes history of a blood clot in the past, however was provoked by knee replacement. Notes history of chronic
wounds, is followed by wound care. Denies any known bug bites or recent exposures. Rash is also itchy in quality. She feels like her leg is very warm. Denies additional [facility] medical complain
Past History
Past History
ED Past Medical History: HTN, Hypercholesterolemia, Hypothyroidism and Other (Arthritis)
ED Past Surgical History: Orthopedic
Social History
Tobacco: Non-smoker
Alcohol: None
Drug: None
Personal: Single
Living: alone
Employment: Other
Family History
Family History: Other
Phy Exam
Physical Exam
Physical Exam:
General: Well-appearing, no clinical signs of dehydration, nontoxic and in no acute distress
HEENT: protecting airway
Neck: appears supple
CV: Normal heart rate
Resp: No accessory muscle use, no increased work of breathing
Abd: No distention
Extremities: Swelling and warmth to the left lower extremity. Purpura type rash, with a focus of inflammation in the inner left thigh, with majority of the rash following at the calf region, circumferential. Generalized tenderness to the calf
region. Distal sensation and pulses intact. Range of motion is grossly intact
Neuro: alert, no focal neurologic deficit
: deferred
Rectal: deferred
Psych: Normal affect
Skin: Intact
Course
Orders/Labs/Results
Orders:
Orders
05/02/25 19:29
Ketorolac [Toradol] 15 mg IV NOW STA
US Periph Venous LOWER Ext LT Urgent
Comment:
Reason For Exam: swelling/redness/pain
05/02/25 19:42
Basic Metabolic Panel Urgent
Complete Blood Count/With Diff Urgent
05/02/25 20:48
Vancomycin [Vancocin] 2,000 mg 0.9% Sodium Chloride 500 ml [Nss] 500 ml IV NOW
05/02/25 20:55
Oxycodone/Acetaminophen [Percocet 5/325] 1 tablet PO NOW STA
Abnormal Lab Results
05/02/25
19:42
RBC 3.94 L 10^6/uL
(4.20-5.40)
MCH 32.7 H pg
(27.0-31.0)
Plt Count 114 L 10^3/uL
(130-400)
MPV 10.6 H fL
(7.4-10.4)
Absolute Monos (auto) 1.0 H 10^3/uL
(0.1-0.6)
Lymphocytes % 17.4 L %
(20.5-51.1)
Monocytes % 11.4 H %
(1.7-9.3)
Sodium 134 L mmol/L
(135-145)
05/02/25 19:42
05/02/25 19:42
Vital Signs
Initial and Last Documented VS:
Initial Vital Signs
Temp Pulse Resp BP Pulse Ox
98.6 F 73 18 110/72 91
05/02/25 16:56 05/02/25 16:56 05/02/25 16:56 05/02/25 16:56 05/02/25 16:56
Last Documented Vital Signs
Temp Pulse Resp BP Pulse Ox
98.6 F 73 18 110/72 91
05/02/25 16:56 05/02/25 16:56 05/02/25 16:56 05/02/25 16:56 05/02/25 19:57
MDM/Problems Addressed
MDM/Problems Addressed:
64-year-old female with history of rheumatoid arthritis, fibromyalgia, diabetes presenting for left lower extremity swelling, redness, rash for the past 4 days. Vital signs on arrival are normal
On exam, patient is resting comfortably, nontoxic, no acute distress. Patient does have obvious rash to left lower extremity, extensive including the left inner thigh and majority of left distal extremity. Rash however is concerning with purpura
type quality. She notes that her doctor told her that her platelet count was low, however is unsure how long it was. Will recheck to ensure rash is not related to thrombocytopenia. Also infectious quality to rash, warm, tender, notes history of
wounds and cellulitis in the past. Plan for laboratory analysis. DVT is also consideration given pain component. Will obtain ultrasound imaging. No present neurovascular compromise with intact sensation and palpable pulses. Toradol administered
for pain
20:45 - Platelet count is slightly low, however without current concern for severe thrombocytopenia or etiology to patient's rash. DVT ultrasound is negative. At this time suspect cellulitis. Will start an IV antibiotics and plan for admission
given failure of outpatient therapy
*Pulse Oximetry
SaO2: 91
Patient hypoxic: no
*Critical Care Note
Total Time (30-74mins, 75-104mins- exclusive of procedures): Not Applicable
ED Attending Note
-
Portions of this chart may have been created with voice recognition software.� Occasional wrong word or��sound alike� substitutions may have occurred due to the inherent limitations of voice recognition software.
Discharge Plan
Departure
Patient Disposition: Admit
Date of Disposition: 05/02/25
Time of Disposition: 20:51
Presentation/result/management discussed w/ accepting MD/DO: Hospitalist
Patient with high blood pressure during this ER visit?: No
Condition: Fair
Discharge Problem:
Cellulitis of left leg
Prescriptions:
No Action
escitalopram oxalate 10 MG tablet
10 mg PO HS
gabapentin 300 MG capsule
300 mg PO DAILY
omeprazole 40 MG capsule,delayed release(DR/EC)
40 mg PO HS
simvastatin 40 MG tablet
40 mg PO HS
cyanocobalamin (vitamin B-12) 1,000 MCG tablet
1,000 mcg PO DAILY
amlodipine 10 MG tablet
10 mg PO DAILY
zolpidem 10 MG tablet
10 mg PO HS
Actemra
0 mg IV Q4W
Patient Comments:
05/02/2025, pt. gets this infusion through [facility]; could not confirm dose at time of interview.
leflunomide 20 mg Tablet
20 mg PO HS
fluticasone propionate [Flonase] 50 mcg/actuation [place],Suspension
2 spray INTRANASAL DAILY
primidone 50 mg Tablet
200 mg PO HS
acetaminophen-codeine 300-30 mg Tablet
1 tab PO Q6HPRN PRN (Reason: severe pain)
teriparatide [Forteo] 20 mcg/dose (560mcg/2.24mL) Pen Injector
20 mcg SC HS
meloxicam 15 mg Tablet
15 mg PO DAILY
Patient Comments:
05/02/2025, currently on hold per pt. while taking Medrol dosepak.
Theragen Tablet
1 tab PO DAILY
aspirin 81 mg Tablet,Delayed Release (Dr/Ec)
81 mg PO DAILY
levothyroxine 100 mcg Tablet
100 mcg PO DAILY
metformin 1,000 mg Tablet
1,000 mg PO BID
montelukast 10 mg Tablet
10 mg PO HS
hydroxychloroquine 200 mg Tablet
400 mg PO QPM
fluticasone propion-salmeterol 100-50 mcg/dose Blister With Device
1 inh INHALATION R BID
methylprednisolone 4 mg Tablets,Dose Pack
0 mg PO PER PKG DIR
Patient Comments:
05/02/2025, filled on 04/29/2025 for 6-day course; pt. is on 4th day of use per pt.
losartan-hydrochlorothiazide 50-12.5 mg Tablet
1 tab PO DAILY
loratadine [Claritin] 10 mg Tablet
10 mg PO HS
cholecalciferol (vitamin D3) 25 mcg (1,000 unit) Tablet
25 mcg PO HS
omega 4-cso-prh-fish oil [Fish Oil] 1,000 (120-180) mg Capsule
1 cap PO HS
Ozempic 2 mg/dose (8 mg/3 mL) Pen Injector
2 mg SC TH
Referrals:
Darlyn Carbajal MD [Family Provider, Family Practice]
Interventions
Interventions:
*Risk Screen - Suicide Last Done: 05/02/25 16:58
*General Assessment Last Done: 05/02/25 18:23
*Neglect/Abuse Screening Last Done: 05/02/25 18:23
*ED- Fall Risk Assessment Last Done: 05/02/25 18:23
ED-Skin Assessment Last Done: 05/02/25 18:23
Discharge Date and Time
Print Language: MAURITIAN
[2025-05-02] MEDS: TORADOL 15 MG IV (20:00)
[2025-05-02 20:13] LABS: Hematocrit 37.1 % (37.0-47.0); Hemoglobin 12.9 g/dL (12.0-16.0); Mean Corp Hgb Conc. 34.8 g/dL (33.0-37.0); Mean Corpuscular Volume 94.2 fL (81.0-99.0); Nucleated Red Blood Cells % 0 %; Platelet Count 114 10^3/uL (130-400); Red Cell Dist. Width 12.9 % (11.5-14.5)
[2025-05-02 20:23] LABS: Blood Urea Nitrogen 17 mg/dl (7-17); Calcium 9.2 mg/dl (8.4-10.2); Carbon Dioxide 26 mmol/L (22-30); Chloride 103 mmol/L (98-107); Estimated Creatinine Clearance 85 ml/min; Glucose 93 mg/dl (70-99); Sodium 134 mmol/L (135-145); eGFR > 60.00
[2025-05-02 21:00] VITALS: BP 117/71
[2025-05-02] MEDS: PERCOCET 5/325 1 TABLET PO (21:07)
[2025-05-02] MEDS: VANCOCIN 540 MG IV (21:32)
--- NOTE | 2025-05-02 22:52 | HPS.HSE ---
Family Physician
-
Family Physician: Darlyn Carbajal
Chief Complaint
-
rash
History of Present Illness
Ms. Isabela Garsia is a 64 yo woman with hx RA, fibromyalgia, DM presents to the ER with worsening rash of left lower extremity.
Patient states 4 days ago she was seen by primary for what looked like urticaria. She was prescribed a Medrol dose pack and today was the 4th day. The redness progressed and so she came to the ER. Area is warm and tender. Redness started in her
groin now spread to abraham.
No fevers/chills. No chest pain or shortness of breath. No abdominal pain. No nausea/vomiting. Eating and drinking well.
Medical History
Past Medical History
Past Medical History: Reports Other (RA, fibromyalgia, DM)
Past Surgical History: Reports Orthopedic (multiple orthopedic surgeries)
Social History
Tobacco: Non-smoker
Alcohol: Occasional
Family History
Family History: Not pertinent
Allergies / Home Medications
Allergies reflects when Allergies were last updated in [facility].
Home Medications with original date entered in [facility]
Allergy/Medication List:
Allergies
Allergy/AdvReac Type Severity Reaction Status Date / Time
amoxicillin Allergy Anaphylaxis Verified 05/02/25 18:04
cephalexin Allergy Hives Verified 05/02/25 18:04
doxycycline Allergy Hives Verified 05/02/25 18:04
silver (From Tegaderm AG Allergy Blisters Verified 05/02/25 18:04
Mesh)
Home Medications
escitalopram oxalate 10 mg tablet 10 mg PO HS 05/07/16
gabapentin 300 mg capsule 300 mg PO DAILY 08/29/20
Actemra 0 mg IV Q4W 04/16/22
amlodipine 10 mg tablet 10 mg PO DAILY 04/16/22
cyanocobalamin (vitamin B-12) 1,000 mcg tablet 1,000 mcg PO DAILY 04/16/22
omeprazole 40 mg capsule,delayed release 40 mg PO HS 04/16/22
simvastatin 40 mg tablet 40 mg PO HS 04/16/22
zolpidem 10 mg tablet 10 mg PO HS 04/16/22
leflunomide 20 mg tablet 20 mg PO HS 03/08/24
fluticasone propionate 50 mcg/actuation nasal spray,suspension 2 spray intranasal DAILY 04/04/24
acetaminophen 300 mg-codeine 30 mg tablet 1 tab PO Q6HPRN PRN severe pain 11/28/24
primidone 50 mg tablet 200 mg PO HS 11/28/24
teriparatide 20 mcg/dose (560 mcg/2.24 mL) subcutaneous pen injector (Forteo) 20 mcg SC HS 03/20/25
aspirin 81 mg tablet,delayed release 81 mg PO DAILY 05/02/25
cholecalciferol (vitamin D3) 25 mcg (1,000 unit) tablet 25 mcg PO HS 05/02/25
fluticasone 100 mcg-salmeterol 50 mcg/dose blistr powdr for inhalation 1 inh inhalation R BID 05/02/25
hydroxychloroquine 200 mg tablet 400 mg PO QPM 05/02/25
levothyroxine 100 mcg tablet 100 mcg PO DAILY 05/02/25
loratadine 10 mg tablet (Claritin) 10 mg PO HS 05/02/25
losartan 50 mg-hydrochlorothiazide 12.5 mg tablet 1 tab PO DAILY 05/02/25
meloxicam 15 mg tablet 15 mg PO DAILY 05/02/25
metformin 1,000 mg tablet 1,000 mg PO BID 05/02/25
methylprednisolone 4 mg tablets in a dose pack 0 mg PO PER PKG DIR 05/02/25
montelukast 10 mg tablet 10 mg PO HS 05/02/25
omega 5-[id number]-[id number]-fish oil 1,000 mg (120 mg-180 mg) capsule (Fish Oil) 1 cap PO HS 05/02/25
semaglutide 2 mg/dose (8 mg/3 mL) subcutaneous pen injector (Ozempic) 2 mg SC 05/02/25
therapeutic multivitamin 1 tab PO DAILY 05/02/25
Review of Systems
-
History Source: Patient
A 12 point ROS was completed and negative except as noted: Yes
Physical Exam
Vital Signs
Vital Signs
Temp Pulse Resp BP Pulse Ox
98.6 F 73 18 110/72 91
05/02/25 16:56 05/02/25 16:56 05/02/25 16:56 05/02/25 16:56 05/02/25 19:57
Physical Exam
General: No Apparent Distress
HEENT: PERRLA
Respiratory: Clear; No Wheezes
Cardiac: S1/S2 and Regular Rhythm
GI: Soft and Non Tender
Musculoskeletal: No Edema and Other (LLE with demarcated area of erythema left inner thigh about 6 cm; she also has larger area erythema abraham with purpuric appearing area around knee and posterior calf)
Skin: Warm, Dry and Rash (see above)
Neuro: AO x 3
Psych: Calm
Laboratory Results
-
05/02/25 19:42
05/02/25 19:42
Laboratory Results
Total Bilirubin Cancelled 05/02/25 19:42
AST Cancelled 05/02/25 19:42
ALT Cancelled 05/02/25 19:42
Alkaline Phosphatase Cancelled 05/02/25 19:42
Data Reviewed
-
Diagnostic Radiology: Report Reviewed by me
Lab Data: Labs Reviewed by me
Impression/Plan
-
Ms. Isabela Garsia is a 64 yo woman with hx RA, fibromyalgia, DM, CVA 2023, presents to the ER with worsening rash of left lower extremity.
Triage VS: T 98.6, P 73, RR 18, BP 110/72, SpO2 91%
LABS: WBC 8.5, Hg 12.9, PLT 114, Na 134, Cl 103, BUN 17, Cr 0.7, Glucose 93, Ca 9.2
LE US:
IMPRESSION:
No sonographic evidence for left lower extremity deep venous thrombosis.
Left Lower Extremity Cellulitis
-patients left lower extremity with expanding redness, warmth with cellulitic appearance. There are areas that look like purpura as well, PLT 114
-stop Medrol dose pack
-continue IV Vancomycin (patient will allergy to Keflex)
-ID consult
-pain control
-LLE elevation
RA - PLATE STACKER Hydroxychloroquine
-hold PLATE STACKER Leflunomide during active infection
-patient receives outpatient Actemra injections
CVA
-continue PLATE STACKER aspirin/statin
Mild thrombocytopenia in setting of acute infection
-monitor
Essential HTN - PLATE STACKER Amlodipine, Losartan-HCTZ
DM
-PLATE STACKER Metformin
-ISS low
Hypothyroidism - PLATE STACKER Synthroid
GERD - PLATE STACKER PPI
Insomnia - PLATE STACKER Ambien
Depression/Anxiety - PLATE STACKER Lexapro
DVT PPx SCD on right leg (hold off on heparin product with mildly low PLT and leg appearance for now) encourage ambulation
FULL CODE
76 minutes spent on patient care
[2025-05-03 01:22] VITALS: BP 179/84; BMI 41.0
[2025-05-03 01:23] LABS: Glucose - Point of Care 95 mg/dl (70-99)
[2025-05-03] MEDS: LEXAPRO 10 MG PO ×2 (01:45→21:00)
[2025-05-03] MEDS: AMBIEN 10 MG PO ×2 (01:45→21:00)
--- NOTE | 2025-05-03 02:23 | PTCARENOTE ---
Pt received from ER [id number] able to make her needs known.Pt right lower leg has a wound, for which pt follows up with wound care & pt has a boot dressing on, changed once a week & dressing was done on 05/02 clean,dry,intact. Pt has cellulitis on left
leg from groin to abraham & small open wound.MRSA was send on pt. Left leg elevated on 2 pillows.Unable to put SCD on right leg as pt has a wound.CASH APPLICATIONS SPECIALIST grails web application developer made aware of it.Plan of care continued. Pt oriented to room and call dejesus in reach.
[2025-05-03 06:00] VITALS: BP 169/76
[2025-05-03] MEDS: SYNTHROID 100 MCG PO (06:15)
[2025-05-03] MEDS: ROXICODONE 5 MG PO ×4 (06:15→18:07)
[2025-05-03 07:47] LABS: Glucose - Point of Care 100 mg/dl (70-99)
[2025-05-03] MEDS: ADVAIR HFA 45/21 MCG INHALER 2 PUFF INH ×2 (07:47→20:15)
[2025-05-03 08:14] VITALS: BP 152/66
[2025-05-03 08:18] LABS: Hematocrit 36.1 % (37.0-47.0); Hemoglobin 12.6 g/dL (12.0-16.0); Mean Corp Hgb Conc. 34.9 g/dL (33.0-37.0); Mean Corpuscular Volume 94.0 fL (81.0-99.0); Nucleated Red Blood Cells % 0 %; Platelet Count 110 10^3/uL (130-400); Red Cell Dist. Width 13.1 % (11.5-14.5)
[2025-05-03 08:45] LABS: Blood Urea Nitrogen 14 mg/dl (7-17); Calcium 8.9 mg/dl (8.4-10.2); Carbon Dioxide 24 mmol/L (22-30); Chloride 105 mmol/L (98-107); Estimated Creatinine Clearance 99 ml/min; Glucose 93 mg/dl (70-99); Magnesium 1.9 mg/dl (1.6-2.3); Potassium 3.7 mmol/L (3.5-5.1); Sodium 136 mmol/L (135-145); eGFR > 60.00
[2025-05-03] MEDS: GLUCOPHAGE 1000 MG PO ×2 (08:50→17:14)
[2025-05-03] MEDS: COZAAR 50 MG PO (08:51)
[2025-05-03] MEDS: ORETIC 12.5 MG PO (08:51)
[2025-05-03] MEDS: VITAMIN B-12 1000 MCG PO (08:51)
[2025-05-03] MEDS: NORVASC 10 MG PO (08:51)
[2025-05-03] MEDS: ASPIR LOW (ENTERIC COATED) 81 MG PO (08:51)
[2025-05-03] MEDS: NEURONTIN 300 MG PO ×2 (08:51→19:56)
[2025-05-03 09:01] LABS: Glycohemoglobin (HgbA1c) 5.4 % (4.0-5.6)
--- NOTE | 2025-05-03 09:29 | PHA.VAN.IN ---
Assessment
- Assessment
Renal Function: Appears similar to baseline
AUC Dosing Plan
- Dosing Variables
Dosing Weight (kg): 98
Dosing CrCl (ml/min): 99
Vd coefficient (L/kg): 0.6
- Empiric Dosing
Initial / Loading Dose: 2000mg - 05/02 21:32
Maintenance Regimen: Vanc 1250mg Q12H starting at 1800 - give 500mg x1 now to maintain levels
Estimated AUC (mcg*h/mL): 523
Estimated Peak (mcg*h/mL): 32.9
Estimated Trough (mcg/ml): 13.3
Estimated Half Life (H): 8
- Monitoring
No levels ordered at this time: consider levels in next few days
Pharmacokinetics Vancomycin I
- -
Patient Age: 64
Patient Sex: Female
Vancomycin Day #: 1
Indication: Skin And Soft Tissue
Requesting Provider: Dr. Mayorga
Pertinent Antimicrobial Allergies:
amoxicillin - anaphylaxis
cephalexin - hives
doxycycline - hives
Height / Weight:
Height 5 ft 1 in
Actual Weight 98.486 kg
Pertinent Past Medical History: BMI ~41
- Vital Signs / Lab Results
Temp Pulse Resp BP Pulse Ox
98 F 61 18 152/66 97
05/03/25 08:14 05/03/25 08:14 05/03/25 08:14 05/03/25 08:14 05/03/25 08:14
Lab Results - Hematology
05/02/25 05/03/25
19:42 07:31
WBC 8.5 7.4
Lab Results - Chemistry
05/02/25 05/03/25
19:42 07:31
BUN 17 14
Creatinine 0.7 0.5 L
Estimated Creat Clear 85 99
Albumin Cancelled
[2025-05-03] MEDS: VANCOCIN HCL 500 MG 100 IV (10:14)
[2025-05-03] MEDS: TYLENOL 650 MG PO ×3 (10:16→18:06)
--- NOTE | 2025-05-03 12:04 | CON.ID ---
Consultation
-
Date/Time Consultation Requested: 05/03/2025 0109
Date/Time Consultation Performed: 05/03/2025 1105
Requesting Provider: Dr. Mayorga
Performing Provider: Dr. King
Reason for Consultation: Left leg cellulitis
Chief Complaint / Past History
History of Present Illness
Isabela Garsia is a 64-year-old female with a significant past medical history of rheumatoid arthritis and diabetes being evaluated at the request of Dr. Mayorga regarding left lower extremity cellulitis. History is obtained from chart review, along
with patient interview.
The patient reports that she has been followed at the [facility] wound care center for the past year for a right lower extremity wound which is improving. She additionally notes a small left lower extremity wound which has also improved.
Most recently, she notes approximately 5 days ago she developed some tiny bumps on her left lower extremity. She contacted her family doctor and she was placed on a Medrol Dosepak. She notes that she developed a spreading rash down her leg which
was 'raised, hot and painful'. She subsequently noted some purpleish discoloration to her leg. She was seen at the wound care center at [facility] and sent to the hospital for further evaluation.
She denies any fevers she notes occasional chills. She reports a rare headache. She denies any chest pain or shortness of breath. She denies any groin pain. She notes burning sensation to her left leg.
Past History
Additional Past Medical History:
Asthma
DM
HTN
HLD
Hypothyroidism
RA (on Actemra, hydroxychloroquine)
Fibromyalgia
Additional Past Surgical History:
Knee replacement
Bilateral shoulder replacement
Wrist surgery
Allergy History:
amoxicillin Allergy (Verified 05/02/25 18:04)
Anaphylaxis
cephalexin Allergy (Verified 05/02/25 18:04)
Hives
doxycycline Allergy (Verified 05/02/25 18:04)
Hives
silver (From Tegaderm AG Mesh) Allergy (Verified 05/02/25 18:04)
Blisters
Medications Reviewed: Yes
Current Antibiotics:
Vancomycin
Social History
Tobacco: Non-Smoker
Alcohol: None
Drug: None
Personal: Single
Living: Alone
Family History
Family History: Not Pertinent
Review of Systems
Vital Signs
Temp Pulse Resp BP Pulse Ox
98 F 61 18 152/66 97
05/03/25 08:14 05/03/25 08:14 05/03/25 08:14 05/03/25 08:14 05/03/25 08:14
Physical Exam
Physical Exam
Constitutional: No Acute Distress, Comfortable and Non-toxic
Eyes: No Conjunctival Hemorrhage and Sclera Anicteric
Cardiovascular: S1/S2; Negative S3/S4
Pulmonary: Non Labored
Gastrointestinal: Soft, Non Tender and Non Distended
Extremities: Edema (LLE) and Erythema (LLE)
Skin: Rash (Vesicular type lesions noted on left lateral calf area. Spreading erythema along the leg onto medial thigh)
Neurological: Awake and Alert
Psychological: Calm
Lab / Diagnostic Study Results
05/03/25 07:31
05/03/25 07:31
Abs Immat Gran (auto) 0.0 10^3/uL (0-0.05) 05/03/25 07:31
Absolute Neuts (auto) 5.2 10^3/uL (1.4-6.5) 05/03/25 07:31
Absolute Lymphs (auto) 1.1 10^3/uL (1.2-3.4) L 05/03/25 07:31
Absolute Monos (auto) 0.8 10^3/uL (0.1-0.6) H 05/03/25 07:31
Absolute Basos (auto) 0.0 10^3/uL (0-0.2) 05/03/25 07:31
Immature Gran % 0.5 % (0-0.5) 05/03/25 07:
Neutrophils % 69.9 % (42.2-75.2) 05/03/25 07:
Lymphocytes % 15.5 % (20.5-51.1) L 05/03/25 07:
Monocytes % 11.3 % (1.7-9.3) H 05/03/25 07:
Eosinophils % 2.3 % (0-6) 05/03/25:
Basophils % 0.5 % (0-2) 05/03/25 07:
Microbiology Results
Micro:
05/03/25 02:01 MRSA Screen - Pending
Nose
Assessment / Plan
Left leg rash/discoloration
Left lateral calf lesions; ?Vesicles
- r/o VZV
Asthma
DM
HTN
HLD
Hypothyroidism
RA (on Actemra, hydroxychloroquine)
Fibromyalgia
Recommendations:
Continue with vancomycin. Follow levels closely to prevent nephrotoxicity.
Add Valtrex for the possibility of VZV (shingles)
Lesions swabbed for PCR. Await results.
Monitor white count temperature curve.
Follow-up for clinical improvement.
[2025-05-03 12:05] LABS: Glucose - Point of Care 102 mg/dl (70-99)
[2025-05-03] MEDS: VALTREX 1000 MG PO ×2 (13:38→21:01)
[2025-05-03 15:00] VITALS: BP 123/57
--- NOTE | 2025-05-03 15:23 | PTCARENOTE ---
Pt and her belongings were transferred to room 427. Report given to SUZI Lora.
--- NOTE | 2025-05-03 15:24 | W.PN.HOSP.TC ---
Addendum entered and electronically signed by Marci Robbins MD 05/03/25 15:56:
I saw and evaluated the patient independently. I reviewed the resident�s note and agree with findings and plan as documented by Dr. Velasquez.
GENERAL: well developed, well nourished, obese female in no apparent distress
HEENT: NC/AT
HEART: regular rate and rhythm, +S1, +S2
LUNGS : clear to auscultation bilaterally
ABDOM: soft, nontender, nondistended, + bowel sounds
EXT: no cyanosis, clubbing, or edema
NEUROLOGIC: grossly intact
SKIN: right leg with compression stocking on--left leg red with blisters on lateral side of left calf, erythema spreading to medial thigh
Left Lower leg rash--has appearance of shingles with possible superimposed cellulitis--apprec ID--cont vanco--valtrex started--agree with stopping medrol dose pack--Lesions swabbed for PCR. Await results.
RA--Hold hydroxychloroquine/Hold leflunomide during active infection--patient receives outpatient Actemra injections
CVA--August 2024--continue GAS DISTRIBUTION AND EMERGENCY CLERK aspirin/statin
thrombocytopenia--Mild--likely due to infection--although could be due to medications--Continue to monitor
Essential HTN--cont Amlodipine, Losartan-HCTZ
DM type II--Continue metformin--ISS low
Hypothyroidism-Continue Synthroid
GERD--Continue PPI
Insomnia--Continue Ambien
Depression/Anxiety--Continue Lexapro
DVT Proph--SCD on right leg-- encourage ambulation
CODE STATUS--FULL CODE
Original Note:
Today's Communication/Plan
-
Valtrex added on for suspicion of VZV
PCR of lesions sent
Assessment / Plan
Assessment / Plan
Isabela Garsia is a 64-year-old female with a significant past medical history of rheumatoid arthritis and diabetes type II A1c 5.4% CVA in September 23, lower extremity ulcers, being evaluated for left lower extremity pain.
The patient reports that she has been followed at the [facility] wound care center for the past year for a right lower extremity wound which is improving. She additionally notes a small left lower extremity wound which has also improved.
she notes approximately 5 days ago she developed some tiny bumps on her left lower extremity. She contacted her family doctor and she was placed on a Medrol Dosepak. She notes that she developed a spreading rash down her leg which was 'raised, hot
and painful'. She subsequently noted some purpleish discoloration to her leg. The Medrol Dosepak did not help. In the ED ultrasound did not show DVT, she was started on vancomycin, ID was consulted who thought that her rash looked more like
vesicles with the possibility of VZV. She was started on Valtrex and swabbed for PCR.
#Left Lower rash
patients left lower extremity with expanding redness, warmth with cellulitic appearance. There are areas that look like purpura as well, PLT 114
stop Medrol dose pack
continue IV Vancomycin (patient will allergy to Keflex)
ID consult
Continue with vancomycin. Follow levels closely to prevent nephrotoxicity.
Add Valtrex for the possibility of VZV (shingles)
Lesions swabbed for PCR. Await results.
Monitor white count temperature curve.
Follow-up for clinical improvement.
#RA
Hold hydroxychloroquine
Hold leflunomide during active infection
-patient receives outpatient Actemra injections
#CVA
August 2024
-continue GAS DISTRIBUTION AND EMERGENCY CLERK aspirin/statin
#thrombocytopenia
Mild platelets 114
in setting of acute infection
Continue to monitor
#Essential HTN
Amlodipine, Losartan-HCTZ
#DM type II
Continue metformin
-ISS low
#Hypothyroidism
Continue Synthroid
#GERD
Continue PPI
#Insomnia
Continue Ambien
#Depression/Anxiety
Continue Lexapro
DVT PPx
SCD on right leg (hold off on heparin product with mildly low PLT and leg appearance for now) encourage ambulation
CODE STATUS
FULL CODE
Anticipated Discharge: 24 - 48 hours
Subjective/Interval History
-
Patient was seen at bedside. She reported that her leg still feels swollen and hot. Medrol Dosepak did not improve her symptoms. The rash is itchy and spreads from her inner groin on her left leg to the outside of her left lower leg. She also
reported that she feels like she pulled a muscle trying to get out of bed on her right leg. date of Service: May 03, 2025
Objective Data
-
Labs:
Laboratory Results
05/03/25
07:31
WBC 7.4
Hgb 12.6
Hct 36.1 L
Plt Count 110 L
Sodium 136
Potassium 3.7
Chloride 105
Carbon Dioxide 24
BUN 14
Creatinine 0.5 L
Glucose 93
Calcium 8.9
Vital Signs:
Vital Signs
Temp Pulse Resp BP Pulse Ox
98 F 61 18 152/66 97
05/03/25 08:14 05/03/25 08:14 05/03/25 08:14 05/03/25 08:14 05/03/25 08:14
Review of Systems
-
History Source: Patient
Constitutional: Reports No Symptoms; Denies Fever
EENT: Reports No Symptoms Reported; Denies Sore Throat or Runny Nose
Respiratory: Reports No Symptoms; Denies Cough or Trouble Breathing
Cardiac: Reports No Symptoms; Denies Chest Pain or Palpitations
Abdomen/GI: Reports No Symptoms; Denies Abdominal Pain, Nausea, Vomiting or Diarrhea
Genitourinary: Reports No Symptoms; Denies Dysuria
Neuro: Reports Tremors; Denies Dizzy
Physical Exam
-
General: Well Nourished, No Apparent Distress and Obese
HEENT: Normocephalic and Atraumatic
Respiratory: Clear to Auscultation; Negative Wheezes or Crackles
Cardiac: Regular Rhythm and S1/S2
GI: Soft, Nontender, Nondistended and Normal Bowel Sounds
Musculoskeletal: No Clubbing and No Cyanosis
Skin: Warm and Dry
Neuro: Awake, Alert and Oriented
[2025-05-03 15:25] VITALS: BP 138/53
[2025-05-03 16:48] LABS: Glucose - Point of Care 95 mg/dl (70-99)
[2025-05-03] MEDS: LIDOCAINE 4% PATCH 1 PATCH TOPICAL (17:12)
[2025-05-03] MEDS: VANCOCIN 275 MG IV (17:16)
[2025-05-03] MEDS: REMOVE LIDOCAINE PATCH 1 PATCH REMOVE (19:56)
[2025-05-03] MEDS: TYLENOL #3 1 TABLET PO (20:54)
[2025-05-03 20:56] LABS: Glucose - Point of Care 91 mg/dl (70-99)
[2025-05-03] MEDS: CLARITIN 10 MG PO (21:00)
[2025-05-03] MEDS: LIPITOR 20 MG PO (21:00)
[2025-05-03] MEDS: MYSOLINE 200 MG PO (21:00)
[2025-05-03] MEDS: VITAMIN D3 (cholecalciferol) 25 MCG PO (21:01)
[2025-05-03] MEDS: PROTONIX 40 MG PO (21:01)
[2025-05-03] MEDS: SINGULAIR 10 MG PO (21:01)
[2025-05-03 23:58] VITALS: BP 136/58
[2025-05-04] MEDS: ROXICODONE 5 MG PO ×2 (04:35→09:21)
[2025-05-04] MEDS: VANCOCIN 275 MG IV ×2 (05:17→17:33)
[2025-05-04] MEDS: SYNTHROID 100 MCG PO (05:18)
[2025-05-04] MEDS: ADVAIR HFA 45/21 MCG INHALER 2 PUFF INH ×2 (07:24→21:08)
[2025-05-04 07:26] VITALS: BP 154/65
[2025-05-04 08:00] LABS: Glucose - Point of Care 123 mg/dl (70-99)
[2025-05-04] MEDS: NEURONTIN 300 MG PO ×3 (08:27→22:32)
[2025-05-04] MEDS: COZAAR 50 MG PO (08:27)
[2025-05-04] MEDS: NORVASC 10 MG PO (08:27)
[2025-05-04] MEDS: VALTREX 1000 MG PO ×3 (08:27→22:32)
[2025-05-04] MEDS: ASPIR LOW (ENTERIC COATED) 81 MG PO (08:27)
[2025-05-04] MEDS: VITAMIN B-12 1000 MCG PO (08:27)
[2025-05-04] MEDS: ORETIC 12.5 MG PO (08:27)
[2025-05-04] MEDS: TYLENOL #3 1 TABLET PO (08:28)
[2025-05-04] MEDS: GLUCOPHAGE 1000 MG PO ×2 (08:28→17:33)
[2025-05-04 08:30] LABS: Hematocrit 39.7 % (37.0-47.0); Hemoglobin 13.4 g/dL (12.0-16.0); Mean Corp Hgb Conc. 33.8 g/dL (33.0-37.0); Mean Corpuscular Volume 96.6 fL (81.0-99.0); Platelet Count 122 10^3/uL (130-400); Red Cell Dist. Width 13.0 % (11.5-14.5)
[2025-05-04] MEDS: LIDOCAINE 4% PATCH 1 PATCH TOPICAL (08:30)
[2025-05-04 08:41] LABS: Blood Urea Nitrogen 10 mg/dl (7-17); Calcium 9.1 mg/dl (8.4-10.2); Carbon Dioxide 31 mmol/L (22-30); Chloride 104 mmol/L (98-107); Estimated Creatinine Clearance 99 ml/min; Glucose 94 mg/dl (70-99); Potassium 4.0 mmol/L (3.5-5.1); Sodium 138 mmol/L (135-145); eGFR > 60.00
--- NOTE | 2025-05-04 09:07 | PHA.VAN.FU ---
Vancomycin Assessment / Plan
- Assessment
Renal Function: Stable
WBC's are: WNL
In the past 24 hrs, patient has been: Afebrile
Concomitant Antimicrobials: valacyclovir
- Dosing Plan
Continue: Vanc 1250mg Q12H
- Monitoring Plan
No level(s) ordered at this time: consider levels in next few days
- Follow Up
Pharmacy will continue to follow.
Vancomycin Follow UP
- -
Patient Age: 64
Patient Sex: Female
Vancomycin Day #: 2
Indication: Skin And Soft Tissue
Requesting Provider: Dr. Mayorga / Dr. King
Pertinent Antimicrobial Allergies:
amoxicillin - anaphylaxis
cephalexin - hives
doxycycline - hives
Height / Weight:
Height 5 ft 1 in
Actual Weight 98.486 kg
Pertinent Past Medical History: BMI ~41
- Vital Signs / Lab Results
Temp Pulse Resp BP Pulse Ox
98.3 F 66 16 154/65 98
05/04/25 07:26 05/04/25 07:27 05/04/25 07:27 05/04/25 07:26 05/04/25 07:27
Lab Results - Hematology
05/02/25 05/03/25 05/04/25
19:42 07:31 07:19
WBC 8.5 7.4 8.8
Lab Results - Chemistry
05/02/25 05/03/25 05/04/25
19:42 07:31 07:19
BUN 17 14 10
Creatinine 0.7 0.5 L 0.5 L
Estimated Creat Clear 85 99 99
Albumin Cancelled
Microbiology Results
05/03/25 02:01 MRSA Screen - Final
Nose No Methicillin Resistant Staphylococcus aureus isolated.
[2025-05-04 11:44] LABS: Glucose - Point of Care 93 mg/dl (70-99)
--- NOTE | 2025-05-04 13:25 | W.PN.ID1 ---
Date of Service
Date of Service: May 04, 2025
Today's Communication
Continue antibiotics.
Assessment / Plan
Left leg rash/discoloration
Left lateral calf lesions; ?Vesicles
- r/o VZV
Multiple antibiotic allergies including amoxicillin, cephalosporins, doxycycline
Asthma
DM
HTN
HLD
Hypothyroidism
RA (on Actemra, hydroxychloroquine)
Fibromyalgia
Recommendations:
Continue with vancomycin. Follow levels closely to prevent nephrotoxicity.
Continue Valtrex for the possibility of VZV (shingles)
Lesions swabbed for HSV and VZV PCR. Await results.
Monitor white count and temperature curve.
Follow for clinical improvement.
Chief Complaint
-: Cellulitis
Subjective / Review of Systems
Patient notes ongoing left leg discomfort.
Vital Signs / Physical Exam
Vital Signs
Vital Signs
Temp Pulse Resp BP Pulse Ox
98.3 F 66 16 154/65 98
05/04/25 07:26 05/04/25 07:27 05/04/25 07:27 05/04/25 07:26 05/04/25 07:27
Physical Exam
Constitutional: No Acute Distress, Comfortable and Non-toxic
Eyes: Sclera Anicteric
Cardiovascular: S1/S2; Negative S3/S4
Pulmonary: Non Labored
Gastrointestinal: Soft and Non Tender
Extremities: Edema and Erythema
Wound: Other (Several clusters of vesicles on the leg.)
Neurological: Awake and Alert
Psychological: Calm
Objective Data
Lab Data
Lab Results
05/04/25 07:19
05/04/25 07:19
Estimated Creat Clear 99 ml/min 05/04/25 07:19
Total Bilirubin Cancelled 05/02/25 19:42
AST Cancelled 05/02/25 19:42
ALT Cancelled 05/02/25 19:42
Alkaline Phosphatase Cancelled 05/02/25 19:42
Most recent labs reviewed.
Micro Results:
05/03/25 02:01 MRSA Screen - Final
Nose No Methicillin Resistant Staphylococcus aureus isolated.
--- NOTE | 2025-05-04 14:07 | W.PN.HOSP.TC ---
Addendum entered and electronically signed by Marci Robbins MD 05/04/25 14:44:
I saw and evaluated the patient independently. I reviewed the resident�s note and agree with findings and plan as documented by Dr. Velasquez.
GENERAL: well developed, well nourished, obese female in no apparent distress
HEENT: NC/AT
HEART: regular rate and rhythm, +S1, +S2
LUNGS : clear to auscultation bilaterally
ABDOM: soft, nontender, nondistended, + bowel sounds
EXT: no cyanosis, clubbing, or edema
NEUROLOGIC: grossly intact
SKIN: right leg with compression stocking on--left leg red with blisters on lateral side of left calf, erythema spreading to medial thigh
Left Lower leg rash--has appearance of shingles with possible superimposed cellulitis--apprec ID--cont vanco/valtrex---Lesions swabbed for PCR. Await results--gabapentin increased to 300mg BID, no improvement--increasing to TID and adding dilaudid
PRN
RA--Hold hydroxychloroquine/Hold leflunomide during active infection--patient receives outpatient Actemra injections
CVA--August 2024--continue [employer] aspirin/statin
thrombocytopenia--Mild--likely due to infection--although could be due to medications--Continue to monitor
Essential HTN--cont Amlodipine, Losartan-HCTZ
DM type II--Continue metformin--ISS low
Hypothyroidism-Continue Synthroid
GERD--Continue PPI
Insomnia--Continue Ambien
Depression/Anxiety--Continue Lexapro
DVT Proph--SCD on right leg-- encourage ambulation
CODE STATUS--FULL CODE
Original Note:
Today's Communication/Plan
-
Continue antibiotics
Continue Valtrex
Added Dilaudid for pain control
Increase gabapentin for neuropathic pain control
Assessment / Plan
Assessment / Plan
Isabela Garsia is a 64-year-old female with a significant past medical history of rheumatoid arthritis and diabetes type II A1c 5.4% CVA in September 23, lower extremity ulcers, being evaluated for left lower extremity pain.
The patient reports that she has been followed at the [facility] wound care center for the past year for a right lower extremity wound which is improving. She additionally notes a small left lower extremity wound which has also improved.
she notes approximately 5 days ago she developed some tiny bumps on her left lower extremity. She contacted her family doctor and she was placed on a Medrol Dosepak. She notes that she developed a spreading rash down her leg which was 'raised, hot
and painful'. She subsequently noted some purpleish discoloration to her leg. The Medrol Dosepak did not help. In the ED ultrasound did not show DVT, she was started on vancomycin, ID was consulted who thought that her rash looked more like
vesicles with the possibility of VZV. She was started on Valtrex and swabbed for PCR.
#Left Lower rash
patients left lower extremity with expanding redness, warmth with cellulitic appearance. There are areas that look like purpura as well, PLT 114
stop Medrol dose pack
continue IV Vancomycin (patient will allergy to Keflex)
ID consult
Continue with vancomycin. Follow levels closely to prevent nephrotoxicity.
Add Valtrex for the possibility of VZV (shingles)
Lesions swabbed for PCR. Await results.
Monitor white count temperature curve.
Follow-up for clinical improvement.
#RA
Hold hydroxychloroquine
Hold leflunomide during active infection
patient receives outpatient Actemra injections next May 13
#CVA
August 2024
continue aspirin and statin
#thrombocytopenia improving
Mild, platelets 114, 110, 122
in setting of acute infection
Continue to monitor
#Essential HTN
Amlodipine
Losartan-HCTZ
#DM type II
Continue metformin
-ISS low
#Hypothyroidism
Continue Synthroid
#GERD
Continue PPI
#Insomnia
Continue Ambien
#Depression/Anxiety
Continue Lexapro
DVT PPx
SCD on right leg (hold off on heparin product with mildly low PLT and leg appearance for now) encourage ambulation
CODE STATUS
FULL CODE
Anticipated Discharge: 24 - 48 hours
Subjective/Interval History
-
Patient was seen at bedside. She still complains of pain in her left lower extremity. It has not seemed to have gotten better still has 9 out of 10 pain that sharp and burning. Pain medications have not been helping. Otherwise has no other
complaints no shortness of breath no chest pain no urinary issues. Lidocaine patch helped other muscle pain of the right hip area. Date of Service: May 04, 2025
Objective Data
-
Labs:
Laboratory Results
05/04/25
07:19
WBC 8.8
Hgb 13.4
Hct 39.7
Plt Count 122 L
Sodium 138
Potassium 4.0
Chloride 104
Carbon Dioxide 31 H
BUN 10
Creatinine 0.5 L
Glucose 94
Calcium 9.1
Vital Signs:
Vital Signs
Temp Pulse Resp BP Pulse Ox
98.3 F 66 16 154/65 98
05/04/25 07:26 05/04/25 07:27 05/04/25 07:27 05/04/25 07:26 05/04/25 07:27
I&O
05/03/25 05/04/25 05/05/25
06:59 06:59 06:59
Intake Total 240 / 240
Balance 240 / 240
Review of Systems
-
History Source: Patient
Constitutional: Reports No Symptoms; Denies Fever or Fatigue
EENT: Reports No Symptoms Reported; Denies Sore Throat or Runny Nose
Respiratory: Reports No Symptoms; Denies Cough, Trouble Breathing or Wheezing
Cardiac: Reports No Symptoms; Denies Chest Pain, Diaphoresis or Palpitations
Abdomen/GI: Reports No Symptoms; Denies Abdominal Pain, Nausea, Vomiting or Diarrhea
Genitourinary: Reports No Symptoms; Denies Dysuria
Musculoskeletal: Reports Muscle Pain (Right hip area)
Skin: Reports Rash (Left lower extremity)
Neuro: Denies Dizzy or Headache
Physical Exam
-
General: Well Developed, Well Nourished and No Apparent Distress
HEENT: Normocephalic and Atraumatic
Respiratory: Clear to Auscultation; Negative Wheezes or Crackles
Cardiac: Regular Rhythm and S1/S2; Negative Murmur or Rub
GI: Soft, Nontender, Nondistended and Normal Bowel Sounds
Musculoskeletal: No Clubbing, No Cyanosis and Edema, Left Upper Extrem
Skin: Rash (Erythematous patch in left groin area, erythema improved from yesterday), Ulcers (Bilateral ulcers on right medial malleolus and left lateral malleolus) and Lesions (Purpuric lesions from the knee to the left lower calf area, multiple
round and crusted lesions. )
Neuro: Awake, Alert, Oriented and Tremors
[2025-05-04] MEDS: DILAUDID 0.25 MG IV ×2 (14:55→20:21)
[2025-05-04 15:11] VITALS: BP 152/66
--- NOTE | 2025-05-04 16:09 | CM ---
Chart reviewed and patint lives in a 1st floor conto, alistairtn is indepdent wityh adl's and ambulation, no dme, catia drives, home when stable, no needs.
PCP: Darlyn Carbajal
Pharmacy; [facility]
Plan; Home when stable, no needs.
[2025-05-04 17:10] LABS: Glucose - Point of Care 123 mg/dl (70-99)
[2025-05-04] MEDS: REMOVE LIDOCAINE PATCH 1 PATCH REMOVE (20:21)
[2025-05-04 21:24] LABS: Glucose - Point of Care 117 mg/dl (70-99)
[2025-05-04] MEDS: TYLENOL 650 MG PO (22:31)
[2025-05-04] MEDS: MYSOLINE 200 MG PO (22:32)
[2025-05-04] MEDS: LIPITOR 20 MG PO (22:32)
[2025-05-04] MEDS: AMBIEN 10 MG PO (22:32)
[2025-05-04] MEDS: VITAMIN D3 (cholecalciferol) 25 MCG PO (22:32)
[2025-05-04] MEDS: PROTONIX 40 MG PO (22:32)
[2025-05-04] MEDS: LEXAPRO 10 MG PO (22:32)
[2025-05-04] MEDS: SINGULAIR 10 MG PO (22:32)
[2025-05-04] MEDS: CLARITIN 10 MG PO (22:32)
[2025-05-04 23:30] VITALS: BP 130/55
[2025-05-05] MEDS: DILAUDID 0.25 MG IV ×3 (00:21→10:17)
[2025-05-05] MEDS: SYNTHROID 100 MCG PO (05:24)
[2025-05-05] MEDS: VANCOCIN 275 MG IV ×2 (05:24→17:44)
[2025-05-05 07:13] LABS: Hematocrit 35.7 % (37.0-47.0); Hemoglobin 12.2 g/dL (12.0-16.0); Mean Corp Hgb Conc. 34.2 g/dL (33.0-37.0); Mean Corpuscular Volume 94.9 fL (81.0-99.0); Platelet Count 108 10^3/uL (130-400); Red Cell Dist. Width 12.7 % (11.5-14.5)
[2025-05-05 07:19] LABS: Blood Urea Nitrogen 10 mg/dl (7-17); Calcium 8.8 mg/dl (8.4-10.2); Carbon Dioxide 29 mmol/L (22-30); Chloride 107 mmol/L (98-107); Estimated Creatinine Clearance 99 ml/min; Glucose 102 mg/dl (70-99); Potassium 3.9 mmol/L (3.5-5.1); Sodium 137 mmol/L (135-145); eGFR > 60.00
[2025-05-05] MEDS: ADVAIR HFA 45/21 MCG INHALER 2 PUFF INH ×2 (07:26→20:34)
[2025-05-05 07:30] VITALS: BP 159/67
[2025-05-05 07:40] LABS: Glucose - Point of Care 101 mg/dl (70-99)
[2025-05-05] MEDS: ORETIC 12.5 MG PO (07:45)
[2025-05-05] MEDS: NORVASC 10 MG PO (07:45)
[2025-05-05] MEDS: COZAAR 50 MG PO (07:45)
[2025-05-05] MEDS: NEURONTIN 300 MG PO ×3 (07:45→21:06)
[2025-05-05] MEDS: ASPIR LOW (ENTERIC COATED) 81 MG PO (07:45)
[2025-05-05] MEDS: GLUCOPHAGE 1000 MG PO ×2 (07:45→16:28)
[2025-05-05] MEDS: VITAMIN B-12 1000 MCG PO (07:45)
[2025-05-05] MEDS: VALTREX 1000 MG PO ×3 (07:45→21:06)
[2025-05-05] MEDS: LIDOCAINE 4% PATCH 1 PATCH TOPICAL (07:46)
--- NOTE | 2025-05-05 09:45 | W.PN.HOSP.TC ---
Addendum entered and electronically signed by Marci Robbins MD 05/05/25 15:37:
I saw and evaluated the patient independently. I reviewed the resident�s note and agree with findings and plan as documented by Dr. Velasquez.
GENERAL: well developed, well nourished, obese female in no apparent distress
HEENT: NC/AT
HEART: regular rate and rhythm, +S1, +S2
LUNGS : clear to auscultation bilaterally
ABDOM: soft, nontender, nondistended, + bowel sounds
EXT: no cyanosis, clubbing, or edema
NEUROLOGIC: grossly intact
SKIN: right leg with compression stocking on--left leg red with blisters on lateral side of left calf now weeping and starting to crust over, erythema improving
Left Lower leg rash--has appearance of shingles with possible superimposed cellulitis--apprec ID--cont vanco/valtrex---Lesions swabbed for PCR. Await results--gabapentin increased to 300mg BID, no improvement--increasing to TID and adding oral
dilaudid PRN
RA--Hold hydroxychloroquine/Hold leflunomide during active infection--patient receives outpatient Actemra injections
CVA--August 2024--continue [employer] aspirin/statin
thrombocytopenia--Mild--likely due to infection--although could be due to medications--Continue to monitor
Essential HTN--cont Amlodipine, Losartan-HCTZ
DM type II--Continue metformin--ISS low
Hypothyroidism-Continue Synthroid
GERD--Continue PPI
Insomnia--Continue Ambien
Depression/Anxiety--Continue Lexapro
DVT Proph--SCD on right leg-- encourage ambulation
CODE STATUS--FULL CODE
Original Note:
Today's Communication/Plan
-
Adjust pain control
Assessment / Plan
Assessment / Plan
Isabela Garsia is a 64-year-old female with a significant past medical history of rheumatoid arthritis and diabetes type II A1c 5.4% CVA in November 24, lower extremity ulcers, being evaluated for left lower extremity pain.
The patient reports that she has been followed at the [facility] wound care center for the past year for a right lower extremity wound which is improving. She additionally notes a small left lower extremity wound which has also improved.
she notes approximately 5 days ago she developed some tiny bumps on her left lower extremity. She contacted her family doctor and she was placed on a Medrol Dosepak. She notes that she developed a spreading rash down her leg which was 'raised, hot
and painful'. She subsequently noted some purpleish discoloration to her leg. The Medrol Dosepak did not help. In the ED ultrasound did not show DVT, she was started on vancomycin, ID was consulted who thought that her rash looked more like
vesicles with the possibility of VZV. She was started on Valtrex and swabbed for PCR.
#Left Lower rash improving
patients left lower extremity with expanding redness, warmth with cellulitic appearance. There are areas that look like purpura as well, PLT 114
stop Medrol dose pack
continue IV Vancomycin (patient will allergy to Keflex)
ID consult
Continue with vancomycin. Follow levels closely to prevent nephrotoxicity.
Add Valtrex for the possibility of VZV (shingles)
Lesions swabbed for PCR. Await results.
Monitor white count temperature curve.
Follow-up for clinical improvement.
Pain control as needed
Acetaminophen, oxycodone, hydromorphone p.o. 2 mg
# Muscle pain improving
Right thigh hip area
Lidocaine patch
Pain control as needed
#RA
Hold hydroxychloroquine
Hold leflunomide during active infection
patient receives outpatient Actemra injections next May 13
#CVA
August 2024
continue aspirin and statin
#thrombocytopenia improving
Mild, platelets 114, 110, 122 108
Multifactorial
in setting of acute infection vancomycin Valtrex
Continue to monitor
#Essential HTN
Amlodipine
Losartan-HCTZ
#DM type II
Continue metformin
-ISS low
#Hypothyroidism
Continue Synthroid
#GERD
Continue PPI
#Insomnia
Continue Ambien
#Depression/Anxiety
Continue Lexapro
DVT PPx
SCD on right leg (hold off on heparin product with mildly low PLT and leg appearance for now) encourage ambulation
CODE STATUS
FULL CODE
Anticipated Discharge: 24 - 48 hours
Subjective/Interval History
-
Patient was seen at bedside she reports that the pain is about the same 07/10 sharp achy. Pain medication has been helping but stopped after 2 hours. Otherwise no complaints. Patient goes to wound care once a week for ulcers on both legs, nursing
consulted wound care. date of Service: May 05, 2025
Objective Data
-
Labs:
Laboratory Results
05/05/25
06:41
WBC 9.4
Hgb 12.2
Hct 35.7 L
Plt Count 108 L
Sodium 137
Potassium 3.9
Chloride 107
Carbon Dioxide 29
BUN 10
Creatinine 0.5 L
Glucose 102 H
Calcium 8.8
Vital Signs:
Vital Signs
Temp Pulse Resp BP Pulse Ox
97.6 F 62 14 159/67 95
05/05/25 07:30 05/05/25 07:30 05/05/25 07:30 05/05/25 07:30 05/05/25 07:30
I&O
05/04/25 05/05/25 05/06/25
06:59 06:59 06:59
Intake Total 240 / 240 1660 / 1660
Balance 240 / 240 1660 / 1660
Review of Systems
-
History Source: Patient
All other systems: Reviewed and negative
Constitutional: Reports No Symptoms; Denies Fever
EENT: Reports No Symptoms Reported; Denies Runny Nose
Respiratory: Reports No Symptoms; Denies Cough or Trouble Breathing
Cardiac: Reports No Symptoms; Denies Chest Pain
Abdomen/GI: Reports No Symptoms; Denies Abdominal Pain, Nausea, Vomiting or Diarrhea
Genitourinary: Reports No Symptoms; Denies Dysuria
Musculoskeletal: Reports Muscle Pain (Right buttocks area) and Edema (Left lower extremity)
Skin: Reports Rash (Left lower extremity)
Neuro: Reports Headache
Physical Exam
-
General: Well Developed, Well Nourished and No Apparent Distress
HEENT: Normocephalic and Atraumatic
Respiratory: Clear to Auscultation; Negative Wheezes or Crackles
Cardiac: Regular Rhythm and S1/S2; Negative Murmur
GI: Soft, Nontender, Nondistended and Normal Bowel Sounds
Musculoskeletal: No Clubbing, No Cyanosis and Edema, Left Lower Extrem
Skin: Rash (Starting from inner left calf down to the feet. Purpuric lesions improving.) and Lesions (Weeping lesions left lower extremity.)
Neuro: Awake, Alert and Oriented
[2025-05-05 12:00] LABS: Glucose - Point of Care 99 mg/dl (70-99)
[2025-05-05] MEDS: DILAUDID 2 MG PO ×2 (13:25→21:05)
--- NOTE | 2025-05-05 14:02 | PHA.VAN.FU ---
Vancomycin Assessment / Plan
- Assessment
Renal Function: Stable
WBC's are: WNL
In the past 24 hrs, patient has been: Afebrile
Concomitant Antimicrobials: valacyclovir
- Dosing Plan
Continue: Vanc 1250mg Q12H
- Monitoring Plan
Peak Level: 76 21:30
Trough Level: 05/06 05:30
Monitoring Comments: levels to be drawn after 5th maintenance dose
- Follow Up
Pharmacy will continue to follow.
Vancomycin Follow UP
- -
Patient Age: 64
Patient Sex: Female
Vancomycin Day #: 3
Indication: Skin And Soft Tissue
Requesting Provider: Dr. Mayroga / Dr. King
Pertinent Antimicrobial Allergies:
amoxicillin - anaphylaxis
cephalexin - hives
doxycycline - hives
Height / Weight:
Height 5 ft 1 in
Actual Weight 98.486 kg
Pertinent Past Medical History: BMI ~41
- Vital Signs / Lab Results
Temp Pulse Resp BP Pulse Ox
97.6 F 62 14 159/67 95
05/05/25 07:30 05/05/25 07:30 05/05/25 07:30 05/05/25 07:30 05/05/25 07:30
Lab Results - Hematology
05/02/25 05/03/25 05/04/25
19:42 07:31 07:19
WBC 8.5 7.4 8.8
05/05/25
06:41
WBC 9.4
Lab Results - Chemistry
05/02/25 05/03/25 05/04/25
19:42 07:31 07:19
BUN 17 14 10
Creatinine 0.7 0.5 L 0.5 L
Estimated Creat Clear 85 99 99
Albumin Cancelled
05/05/25
06:41
BUN 10
Creatinine 0.5 L
Estimated Creat Clear 99
Albumin
Microbiology Results
05/03/25 02:01 MRSA Screen - Final
Nose No Methicillin Resistant Staphylococcus aureus isolated.
[2025-05-05 16:20] LABS: Glucose - Point of Care 122 mg/dl (70-99)
[2025-05-05 16:37] VITALS: BP 148/70
[2025-05-05] MEDS: REMOVE LIDOCAINE PATCH 1 PATCH REMOVE (20:37)
[2025-05-05] MEDS: CLARITIN 10 MG PO (21:05)
[2025-05-05] MEDS: VITAMIN D3 (cholecalciferol) 25 MCG PO (21:06)
[2025-05-05] MEDS: LEXAPRO 10 MG PO (21:06)
[2025-05-05] MEDS: LIPITOR 20 MG PO (21:06)
[2025-05-05] MEDS: PROTONIX 40 MG PO (21:06)
[2025-05-05] MEDS: SINGULAIR 10 MG PO (21:06)
[2025-05-05] MEDS: MYSOLINE 200 MG PO (21:06)
[2025-05-05] MEDS: AMBIEN 10 MG PO (21:06)
[2025-05-05 21:10] VITALS: BP 149/69
[2025-05-05 21:33] LABS: Glucose - Point of Care 115 mg/dl (70-99)
[2025-05-06 00:16] VITALS: BP 146/49
[2025-05-06] MEDS: DILAUDID 2 MG PO ×4 (03:09→23:00)
[2025-05-06] MEDS: SYNTHROID 100 MCG PO (05:40)
[2025-05-06] MEDS: VANCOCIN 275 MG IV ×2 (05:58→17:47)
[2025-05-06 06:24] LABS: Hematocrit 37.4 % (37.0-47.0); Hemoglobin 12.9 g/dL (12.0-16.0); Mean Corp Hgb Conc. 34.5 g/dL (33.0-37.0); Mean Corpuscular Volume 94.2 fL (81.0-99.0); Platelet Count 133 10^3/uL (130-400); Red Cell Dist. Width 12.6 % (11.5-14.5)
[2025-05-06 06:43] LABS: Blood Urea Nitrogen 8 mg/dl (7-17); Calcium 9.3 mg/dl (8.4-10.2); Carbon Dioxide 28 mmol/L (22-30); Chloride 104 mmol/L (98-107); Estimated Creatinine Clearance 99 ml/min; Glucose 96 mg/dl (70-99); Potassium 4.3 mmol/L (3.5-5.1); Sodium 137 mmol/L (135-145); eGFR > 60.00
[2025-05-06] MEDS: ADVAIR HFA 45/21 MCG INHALER 2 PUFF INH ×2 (07:07→20:10)
[2025-05-06 07:15] VITALS: BP 154/67
[2025-05-06 07:21] LABS: Glucose - Point of Care 101 mg/dl (70-99)
--- NOTE | 2025-05-06 08:55 | PHA.VAN.FU ---
Vancomycin Assessment / Plan
- Assessment
Renal Function: Stable
WBC's are: WNL
In the past 24 hrs, patient has been: Afebrile
Concomitant Antimicrobials: valacyclovir
- Assessment - Therapeutic Drug Monitoring
Extrapolated Cmax (mcg/mL): 32.4
Peak level was drawn: Appropriately (drawn ~2.2H after end of previous infusion)
Extrapolated Cmin (mcg/mL): 12
Trough Drawn: Appropriately
Levels were drawn: At steady state (drawn after 5th maintenance dose)
Calculated AUC (mcg*h/mL): 497
Calculated ke: 0.0948
Calculated half life (H): 7.3
Calculated Vd (L): 53 (~0.5 L/kg)
Calculated Vanc CL (ml/min): 84
- Dosing Plan
Continue: Vanc 1250mg Q12H
- Monitoring Plan
Level(s) appropriate: Recheck trough at minimum of weekly intervals, Repeat sooner for changes in renal function or clinical status
Next Level Due (Date): ~05/13
- Follow Up
Pharmacy will continue to follow.
Vancomycin Follow UP
- -
Patient Age: 64
Patient Sex: Female
Vancomycin Day #: 4
Indication: Skin And Soft Tissue
Requesting Provider: Dr. Mayorga / Dr. King
Pertinent Antimicrobial Allergies:
amoxicillin - anaphylaxis
cephalexin - hives
doxycycline - hives
Height / Weight:
Height 5 ft 1 in
Actual Weight 98.486 kg
Pertinent Past Medical History: BMI ~41
- Vital Signs / Lab Results
Temp Pulse Resp BP Pulse Ox
97.7 F 63 16 154/67 94
05/06/25 07:15 05/06/25 07:15 05/06/25 07:15 05/06/25 07:15 05/06/25 07:15
Lab Results - Hematology
05/04/25 05/05/25 05/06/25
07:19 06:41 05:53
WBC 8.8 9.4 9.3
Lab Results - Chemistry
05/04/25 05/05/25 05/06/25
07:19 06:41 05:53
BUN 10 10 8
Creatinine 0.5 L 0.5 L 0.5 L
Estimated Creat Clear 99 99 99
Microbiology Results
05/03/25 02:01 MRSA Screen - Final
Nose No Methicillin Resistant Staphylococcus aureus isolated.
Therapeutic Drug Monitoring
Vancomycin Peak 26.2 ug/ml (18-26) H 05/05/25 21:28
Vancomycin Trough 11.8 ug/ml (5-20) 05/06/25 05:53
--- NOTE | 2025-05-06 09:51 | W.PN.HOSP.TC ---
Addendum entered and electronically signed by Dennis Bynum DO 05/06/25 14:19:
CDI: Morbid obesity, cellulitis likely associated with T2DM
Correction: Shingles suspected, not confirmed. Follow-up PCR
Original Note:
Today's Communication/Plan
-
Patient doing better
Encourage p.o. intake
Pain under control
Headache encouraged patient to try Tylenol as needed
Assessment / Plan
Assessment / Plan
Isabela Garsia is a 64-year-old female with a significant past medical history of rheumatoid arthritis and diabetes type II A1c 5.4% CVA in September 23, lower extremity ulcers, being evaluated for left lower extremity pain.
The patient reports that she has been followed at the [facility] wound care center for the past year for a right lower extremity wound which is improving. She additionally notes a small left lower extremity wound which has also improved.
she notes approximately 5 days ago she developed some tiny bumps on her left lower extremity. She contacted her family doctor and she was placed on a Medrol Dosepak. She notes that she developed a spreading rash down her leg which was 'raised, hot
and painful'. She subsequently noted some purpleish discoloration to her leg. The Medrol Dosepak did not help. In the ED ultrasound did not show DVT, she was started on vancomycin, ID was consulted who thought that her rash looked more like
vesicles with the possibility of VZV. She was started on Valtrex and swabbed for PCR. She has been improving with lesions crusting over and producing straw-colored fluid. Patient's pain control modulated.
#Left Lower rash improving
patients left lower extremity with expanding redness, warmth with cellulitic appearance. There are areas that look like purpura as well, PLT 114
stop Medrol dose pack
continue IV Vancomycin (patient will allergy to Keflex)
ID consult
Continue with vancomycin. Follow levels closely to prevent nephrotoxicity.
Add Valtrex for the possibility of VZV (shingles)
Lesions swabbed for PCR. Await results.
Monitor white count temperature curve.
Follow-up for clinical improvement.
Pain control as needed
Acetaminophen, oxycodone, hydromorphone p.o. 2 mg
# Muscle pain improving
Right thigh hip area
Lidocaine patch
Pain control as needed
# Lower extremity ulcer
Bilateral ulcers on left lateral malleolus right medial malleolus
Being followed by wound care outpatient
Wound care consult
Continue to monitor
# Headache
Holocephalic 6 out of 10
No nausea or vomiting
Started after administration of antibiotics/Valtrex
Encouraged p.o. intake
Encourage Tylenol as needed
Continue to monitor
#RA
Hold hydroxychloroquine
Hold leflunomide during active infection
patient receives outpatient Actemra injections next May 13
#CVA
August 2024
continue aspirin and statin
#thrombocytopenia improving
Mild, platelets 114, 110, 122 108
Multifactorial
in setting of acute infection vancomycin Valtrex
Continue to monitor
#Essential HTN
Amlodipine
Losartan-HCTZ
#DM type II
Continue metformin
-ISS low
#Hypothyroidism
Continue Synthroid
#GERD
Continue PPI
#Insomnia
Continue Ambien
#Depression/Anxiety
Continue Lexapro
DVT PPx
SCD on right leg (hold off on heparin product with mildly low PLT and leg appearance for now) encourage ambulation
CODE STATUS
FULL CODE
Anticipated Discharge: 24 - 48 hours
Subjective/Interval History
-
Patient was seen at bedside. She reports feeling better, with greater pain control with Dilaudid p.o. She also reports mild headache and encouraged her to increase PO, and ask for Tylenol as needed. Date of Service: May 06, 2025
Objective Data
-
Labs:
Laboratory Results
05/06/25
05:53
WBC 9.3
Hgb 12.9
Hct 37.4
Plt Count 133 D
Sodium 137
Potassium 4.3
Chloride 104
Carbon Dioxide 28
BUN 8
Creatinine 0.5 L
Glucose 96
Calcium 9.3
Vital Signs:
Vital Signs
Temp Pulse Resp BP Pulse Ox
97.7 F 63 16 154/67 94
05/06/25 07:15 05/06/25 07:15 05/06/25 07:15 05/06/25 07:15 05/06/25 07:15
I&O
05/05/25 05/06/25 05/07/25
06:59 06:59 06:59
Intake Total 1660 / 1660 960 / 960
Balance 1660 / 1660 960 / 960
Review of Systems
-
History Source: Patient
Constitutional: Reports No Symptoms; Denies Fever
EENT: Reports No Symptoms Reported; Denies Sore Throat or Runny Nose
Respiratory: Reports No Symptoms; Denies Cough or Trouble Breathing
Cardiac: Reports No Symptoms; Denies Chest Pain or Palpitations
Abdomen/GI: Reports No Symptoms; Denies Abdominal Pain, Nausea, Vomiting or Diarrhea
Genitourinary: Reports No Symptoms; Denies Dysuria
Musculoskeletal: Reports Edema; Denies Joint Pain
Skin: Reports Rash (Left lower extremity)
Neuro: Reports Headache
Physical Exam
-
General: Well Developed, Well Nourished and No Apparent Distress
HEENT: Normocephalic and Atraumatic
Respiratory: Clear to Auscultation; Negative Wheezes or Crackles
Cardiac: Regular Rhythm and S1/S2; Negative Murmur
GI: Soft, Nontender, Nondistended and Normal Bowel Sounds
Musculoskeletal: No Clubbing and No Cyanosis
Skin: Rash (Improving, left lower extremity, continuing to crust over) and Lesions
Neuro: Awake, Alert, Oriented and Other (6 out of 10 headache, holocephalic)
[2025-05-06] MEDS: LIDOCAINE 4% PATCH 1 PATCH TOPICAL (10:21)
[2025-05-06] MEDS: COZAAR 50 MG PO (10:22)
[2025-05-06] MEDS: NORVASC 10 MG PO (10:23)
[2025-05-06] MEDS: ASPIR LOW (ENTERIC COATED) 81 MG PO (10:23)
[2025-05-06] MEDS: GLUCOPHAGE 1000 MG PO ×2 (10:23→16:46)
[2025-05-06] MEDS: NEURONTIN 300 MG PO ×3 (10:23→21:36)
[2025-05-06] MEDS: ORETIC 12.5 MG PO (10:23)
[2025-05-06] MEDS: VALTREX 1000 MG PO ×3 (10:23→21:36)
[2025-05-06] MEDS: VITAMIN B-12 1000 MCG PO (10:24)
--- NOTE | 2025-05-06 10:46 | WOUNDNOTE ---
\\WOC RN note: Patient admitted with left LE cellulitis
See H&P for complete history.
PMH: RA, fibromyalgia, asthma, multiple surgeries, sepsis
Wound Location and type/assessment: Patient admitted with left medial ankle wound. Patient reports following at [facility] and uses collagen gel to wound. Please see worklist for measurements and other wound details. Left leg with venous stasis
and cellulitic appearing skin. Right leg with Coflex dressing which is due to be changed at [facility] on 05/09. Sacrum and left heel intact.
Appetite: Good
Pressure redistribution devices in place: Versa Care Air, patient stands and turns self in bed.
Plan: Wound care to left ankle wound with collagen gel as it appears to be appropriate and patient has brought from home. Compression applied and had been previously ordered. Patient is due back at [facility] on 05/09 to have coflex removed from right leg.
Please contact WOC RN if patient is still here on 05/09. Will confirm orders with hospitalist and update nurse.
Updated care plan and will follow as needed.
Note to case management of equipment requested for discharge:
Recommend follow up at wound care center upon discharge.
[2025-05-06 11:29] LABS: Glucose - Point of Care 101 mg/dl (70-99)
--- NOTE | 2025-05-06 13:53 | WOUNDNOTE ---
WOC RN note: Patient admitted with left LE cellulitis
See H&P for complete history.
PMH: RA, fibromyalgia, asthma, multiple surgeries, sepsis
Wound Location and type/assessment: Patient admitted with left lateral ankle wound. Patient reports following at [facility] and uses collagen gel to wound. Please see worklist for measurements and other wound details. Left leg with venous stasis
and cellulitic appearing skin. Right leg with Coflex dressing which is due to be changed at [facility] on 05/09. Sacrum and left heel intact.
Appetite: Good
Pressure redistribution devices in place: Versa Care Air, patient stands and turns self in bed.
Plan: Wound care to left ankle wound with collagen gel as it appears to be appropriate and patient has brought from home. Compression applied and had been previously ordered. Patient is due back at [facility] on 05/09 to have coflex removed from right leg.
Please contact WOC RN if patient is still here on 05/09. Will confirm orders with hospitalist and update nurse.
Updated care plan and will follow as needed.
Note to case management of equipment requested for discharge:
Recommend follow up at wound care center upon discharge.
--- NOTE | 2025-05-06 13:54 | WOUNDNOTE ---
LEFT LEG WOUND
--- NOTE | 2025-05-06 13:54 | WOUNDNOTE ---
LEFT LEG WOUND
--- NOTE | 2025-05-06 14:00 | PN.CDI ---
CDI
- -
CDI:
Physician Documentation Request
Admit Date: 05/03/25 00:36
Dear Doctor Eva,
Please review the following and provide your response in the progress notes.
Clinical Indicators:
Height: 5 ft 1 inch
Weight:217
BMI:41.0
Please provide an associated diagnosis related to the abnormal BMI:
BMI > or = to 40
Overweight
Obesity:
Due to excess calories
Drug induced
Due to other cause
Severe or morbid obesity:
With alveolar hypoventilation (Obesity hypoventilation syndrome)
Without alveolar hypoventilation
- BMI is not significant
- Other
Use of terms such as suspected, likely, concern for, or probable (associated with a specific diagnosis that is being evaluated, monitored, or treated as if it exists) are acceptable and can be coded in the inpatient setting, when documented at the
time of discharge.
Thank you,
Candace Morris RN, BSN
CDI Specialist
tiger text
Please use your independent medical judgment in providing your response.
--- NOTE | 2025-05-06 14:01 | W.PN.ID1 ---
Date of Service
Date of Service: May 06, 2025
Today's Communication
Continue antibiotics.
Assessment / Plan
Left leg rash/discoloration
Left lateral calf lesions; ?Vesicles
- r/o VZV
Multiple antibiotic allergies including amoxicillin, cephalosporins, doxycycline
Asthma
DM
HTN
HLD
Hypothyroidism
RA (on Actemra, hydroxychloroquine)
Fibromyalgia
Recommendations:
Continue with vancomycin. Follow levels closely to prevent nephrotoxicity.
Continue Valtrex for the possibility of VZV (shingles); not confirmed as of yet.
- Lesions swabbed for HSV and VZV PCR. Await results.
Monitor white count and temperature curve.
Follow for clinical improvement.
Chief Complaint
-: Cellulitis
Subjective / Review of Systems
Review of Systems: No Fever and No Chills
Vital Signs / Physical Exam
Vital Signs
Vital Signs
Temp Pulse Resp BP Pulse Ox
97.7 F 63 16 154/67 94
05/06/25 07:15 05/06/25 07:15 05/06/25 07:15 05/06/25 07:15 05/06/25 07:15
Physical Exam
Constitutional: No Acute Distress, Comfortable and Non-toxic
Eyes: Sclera Anicteric
Pulmonary: Non Labored
Gastrointestinal: Soft and Non Tender
Extremities: Edema and Erythema
Wound: Other (Several clusters of vesicles on the leg.)
Neurological: Awake and Alert
Psychological: Calm
Objective Data
Lab Data
Lab Results
05/06/25 05:53
05/06/25 05:53
Estimated Creat Clear 99 ml/min 05/06/25 05:53
Total Bilirubin Cancelled 05/02/25 19:42
AST Cancelled 05/02/25 19:42
ALT Cancelled 05/02/25 19:42
Alkaline Phosphatase Cancelled 05/02/25 19:42
Most recent labs reviewed.
Micro Results:
05/03/25 02:01 MRSA Screen - Final
Nose No Methicillin Resistant Staphylococcus aureus isolated.
--- NOTE | 2025-05-06 14:03 | PN.CDI ---
CDI
- -
CDI:
Physician Documentation Request
Admit Date: 05/03/25 00:36
Dear Doctor Eva,
Patient admitted for management of Multifactorial rash of the LLE nonpurulent cellulitis and shingles.
Patient has Type II DM.
Please clarify if a relationship exist between these conditions:
Yes, cellulitis is related to/associated with/due to type II DM
No, cellulitis is not related to/associated with/due to type II DM.
Unable to determine
Use of terms such as suspected, likely, concern for, or probable (associated with a specific diagnosis that is being evaluated, monitored, or treated as if it exists) are acceptable and can be coded in the inpatient setting, when documented at the
time of discharge.
Thank you,
Candace Morris RN, BSN
CDI Specialist
tiger text
Please use your independent medical judgment in providing your response.
[2025-05-06 15:20] VITALS: BP 157/69
[2025-05-06] MEDS: HEPARIN 5000 UNITS SC ×2 (15:45→23:01)
[2025-05-06] MEDS: TYLENOL 650 MG PO (15:46)
[2025-05-06 16:27] LABS: Glucose - Point of Care 119 mg/dl (70-99)
[2025-05-06] MEDS: REMOVE LIDOCAINE PATCH 1 PATCH REMOVE (21:00)
[2025-05-06 21:34] LABS: Glucose - Point of Care 107 mg/dl (70-99)
[2025-05-06] MEDS: MYSOLINE 200 MG PO (21:35)
[2025-05-06] MEDS: VITAMIN D3 (cholecalciferol) 25 MCG PO (21:36)
[2025-05-06] MEDS: SINGULAIR 10 MG PO (21:36)
[2025-05-06] MEDS: CLARITIN 10 MG PO (21:36)
[2025-05-06] MEDS: LIPITOR 20 MG PO (21:36)
[2025-05-06] MEDS: LEXAPRO 10 MG PO (21:36)
[2025-05-06] MEDS: PROTONIX 40 MG PO (21:36)
[2025-05-06] MEDS: AMBIEN 10 MG PO (21:43)
[2025-05-06 23:06] VITALS: BP 132/64
[2025-05-07 03:15] LABS: HSV 1 Subtype by PCR Not Detected; HSV 2 Subtype by PCR Not Detected
[2025-05-07] MEDS: VANCOCIN 275 MG IV ×2 (05:01→18:43)
[2025-05-07] MEDS: SYNTHROID 100 MCG PO (05:01)
[2025-05-07] MEDS: ROXICODONE 5 MG PO (06:43)
[2025-05-07 06:57] LABS: Hematocrit 35.6 % (37.0-47.0); Hemoglobin 12.3 g/dL (12.0-16.0); Mean Corp Hgb Conc. 34.6 g/dL (33.0-37.0); Mean Corpuscular Volume 94.2 fL (81.0-99.0); Platelet Count 127 10^3/uL (130-400); Red Cell Dist. Width 12.3 % (11.5-14.5)
[2025-05-07 07:01] LABS: Blood Urea Nitrogen 11 mg/dl (7-17); Calcium 9.0 mg/dl (8.4-10.2); Carbon Dioxide 29 mmol/L (22-30); Chloride 106 mmol/L (98-107); Estimated Creatinine Clearance 99 ml/min; Glucose 97 mg/dl (70-99); Potassium 4.2 mmol/L (3.5-5.1); Sodium 137 mmol/L (135-145); eGFR > 60.00
[2025-05-07] MEDS: ADVAIR HFA 45/21 MCG INHALER 2 PUFF INH ×2 (07:18→19:37)
[2025-05-07 07:22] VITALS: BP 129/61
[2025-05-07 07:58] LABS: Glucose - Point of Care 112 mg/dl (70-99)
[2025-05-07] MEDS: LIDOCAINE 4% PATCH 1 PATCH TOPICAL (08:12)
[2025-05-07] MEDS: NEURONTIN 300 MG PO ×3 (08:13→21:18)
[2025-05-07] MEDS: HEPARIN 5000 UNITS SC ×3 (08:14→23:30)
[2025-05-07] MEDS: ORETIC 12.5 MG PO (08:15)
[2025-05-07] MEDS: VITAMIN B-12 1000 MCG PO (08:15)
[2025-05-07] MEDS: ASPIR LOW (ENTERIC COATED) 81 MG PO (08:16)
[2025-05-07] MEDS: COZAAR 50 MG PO (08:16)
[2025-05-07] MEDS: NORVASC 10 MG PO (08:16)
[2025-05-07] MEDS: VALTREX 1000 MG PO (08:16)
[2025-05-07] MEDS: GLUCOPHAGE 1000 MG PO ×2 (08:16→18:42)
--- NOTE | 2025-05-07 09:28 | PHA.VAN.FU ---
Vancomycin Assessment / Plan
- Assessment
Renal Function: Stable
WBC's are: WNL
In the past 24 hrs, patient has been: Afebrile
Concomitant Antimicrobials: valacyclovir
- Dosing Plan
Continue: Vanc 1250mg Q12H
- Monitoring Plan
Level(s) appropriate: Recheck trough at minimum of weekly intervals, Repeat sooner for changes in renal function or clinical status
Next Level Due (Date): ~05/13
- Follow Up
Pharmacy will continue to follow.
Vancomycin Follow UP
- -
Patient Age: 64
Patient Sex: Female
Vancomycin Day #: 5
Indication: Skin And Soft Tissue
Requesting Provider: Dr. Mayorga / Dr. King
Pertinent Antimicrobial Allergies:
amoxicillin - anaphylaxis
cephalexin - hives
doxycycline - hives
Height / Weight:
Height 5 ft 1 in
Actual Weight 98.486 kg
Pertinent Past Medical History: BMI ~41
- Vital Signs / Lab Results
Temp Pulse Resp BP Pulse Ox
98.4 F 64 20 129/61 98
05/07/25 07:22 05/07/25 07:22 05/07/25 07:22 05/07/25 07:22 05/07/25 07:22
Lab Results - Hematology
05/05/25 05/06/25 05/07/25
06:41 05:53 06:25
WBC 9.4 9.3 6.5
Lab Results - Chemistry
05/05/25 05/06/25 05/07/25
06:41 05:53 06:25
BUN 10 8 11
Creatinine 0.5 L 0.5 L 0.5 L
Estimated Creat Clear 99 99 99
Therapeutic Drug Monitoring
Vancomycin Peak 26.2 ug/ml (18-26) H 05/05/25 21:28
Vancomycin Trough 11.8 ug/ml (5-20) 07/07/25 05:53
[2025-05-07] MEDS: TYLENOL 650 MG PO (09:47)
--- NOTE | 2025-05-07 09:47 | W.PN.HOSP.TC ---
Today's Communication/Plan
-
HSV 1 and 2 negative awaiting serology results
Assessment / Plan
Assessment / Plan
Isabela Garsia is a 64-year-old female with a significant past medical history of rheumatoid arthritis and diabetes type II A1c 5.4% CVA in September 23, lower extremity ulcers, being evaluated for left lower extremity pain. The patient reports that
she has been followed at the [facility] wound care center for the past year for a right lower extremity wound which is improving. She additionally notes a small left lower extremity wound which has also improved. she notes approximately 5
days ago she developed some tiny bumps on her left lower extremity. She contacted her family doctor and she was placed on a Medrol Dosepak. She notes that she developed a spreading rash down her leg which was 'raised, hot and painful'. She
subsequently noted some purpleish discoloration to her leg. The Medrol Dosepak did not help. In the ED ultrasound did not show DVT, she was started on vancomycin, ID was consulted who thought that her rash looked more like vesicles with the
possibility of VZV. She was started on Valtrex and swabbed for PCR. She has been improving with lesions crusting over and producing straw-colored fluid. Patient's pain under control with medications. HSV 1, 2 serology negative.
#Left Lower rash improving
Cellulitis versus VZV
Unable to determine if due to type II DM
patients left lower extremity with expanding redness, warmth with cellulitic appearance. There are areas that look like purpura as well, PLT 114
stop Medrol dose pack
continue IV Vancomycin (patient will allergy to Keflex)
ID consult
Continue with vancomycin. Follow levels closely to prevent nephrotoxicity.
Add Valtrex for the possibility of VZV (shingles)
Lesions swabbed for PCR. PCR negative for HSV 1 and 2
Monitor white count temperature curve.
Follow-up for clinical improvement.
Pain control as needed
Acetaminophen, oxycodone, hydromorphone p.o. 2 mg
# Muscle pain improving
Right thigh hip area
Lidocaine patch
Pain control as needed
# Lower extremity ulcer
Bilateral ulcers on left lateral malleolus right medial malleolus
Being followed by wound care outpatient
Wound care consult
Continue to monitor
# Headache, resolving
Holocephalic 6 out of 10
No nausea or vomiting
Started after administration of antibiotics/Valtrex
Encouraged p.o. intake
Encourage Tylenol as needed
Continue to monitor
#RA
Hold hydroxychloroquine
Hold leflunomide during active infection
patient receives outpatient Actemra injections next May 13
#CVA
August 2024
continue aspirin and statin
#thrombocytopenia improving
Mild, platelets 114, 110, 122 108 133 127
Multifactorial
in setting of acute infection vancomycin Valtrex
Continue to monitor
#Essential HTN
Amlodipine
Losartan-HCTZ
#DM type II
Continue metformin
-ISS low
#Hypothyroidism
Continue Synthroid
#GERD
Continue PPI
#Insomnia
Continue Ambien
#Depression/Anxiety
Continue Lexapro
DVT PPx
SCD on right leg (hold off on heparin product with mildly low PLT and leg appearance for now) encourage ambulation
CODE STATUS
FULL CODE
Anticipated Discharge: 24 - 48 hours
Subjective/Interval History
-
Patient was seen at bedside today. She reports feeling a lot better. Mild headache resolved with Tylenol. Wound care saw her yesterday for her ulcers which she appreciated. Otherwise has no complaints. Date of Service: May 07, 2025
Objective Data
-
Labs:
Laboratory Results
05/07/25
06:25
WBC 6.5
Hgb 12.3
Hct 35.6 L
Plt Count 127 L
Sodium 137
Potassium 4.2
Chloride 106
Carbon Dioxide 29
BUN 11
Creatinine 0.5 L
Glucose 97
Calcium 9.0
Vital Signs:
Vital Signs
Temp Pulse Resp BP Pulse Ox
98.4 F 64 20 129/61 98
05/07/25 07:22 05/07/25 07:22 05/07/25 07:22 05/07/25 07:22 05/07/25 07:22
I&O
05/06/25 05/07/25 05/08/25
06:59 06:59 06:59
Intake Total 960 / 960 2705 / 2705
Balance 960 / 960 2705 / 2705
Review of Systems
-
History Source: Patient
Constitutional: Reports No Symptoms; Denies Fever or Fatigue
EENT: Reports No Symptoms Reported
Respiratory: Reports No Symptoms; Denies Cough or Trouble Breathing
Cardiac: Reports No Symptoms; Denies Chest Pain or Palpitations
Abdomen/GI: Reports No Symptoms; Denies Abdominal Pain, Nausea, Vomiting or Diarrhea
Genitourinary: Reports No Symptoms; Denies Dysuria
Skin: Reports Rash (Left lower extremity) and Sores (Left lower extremity)
Neuro: Reports No Symptoms
Physical Exam
-
General: Well Developed, Well Nourished, No Apparent Distress and Obese (Due to excess calories)
HEENT: Normocephalic and Atraumatic
Respiratory: Clear to Auscultation; Negative Wheezes or Crackles
Cardiac: Regular Rhythm and S1/S2; Negative Murmur
GI: Soft, Nontender, Nondistended and Normal Bowel Sounds
Musculoskeletal: No Clubbing, No Cyanosis and No Edema
Skin: Warm, Dry, Ulcers (Bilateral malleoli on each lower extremity), Lesions (Purpleish papules with some crusted lesions on left lower extremity) and Other (Erythematous groin patch resolved, ecchymosis in lower extremity improving)
Neuro: Awake, Alert and Oriented
[2025-05-07 11:43] LABS: Glucose - Point of Care 99 mg/dl (70-99)
--- NOTE | 2025-05-07 12:59 | W.PN.ID1 ---
Date of Service
Date of Service: May 07, 2025
Today's Communication
Continue vancomycin. Discontinue further Valtrex.
Assessment / Plan
Left leg rash/discoloration
Left lateral calf lesions; ?Vesicles
- Swab negative for VZV and HSV
Multiple antibiotic allergies including amoxicillin, cephalosporins, doxycycline
Asthma
DM
HTN
HLD
Hypothyroidism
RA (on Actemra, hydroxychloroquine)
Fibromyalgia
Recommendations:
Continue with vancomycin. Follow levels closely to prevent nephrotoxicity.
Given swabs were negative for VZV and HSV; discontinue further Valtrex.
Multiple antibiotic allergies make a transition to oral antibiotics difficult. Patient may require a course of home IV vancomycin.
Monitor white count and temperature curve.
Follow for ongoing clinical improvement.
Chief Complaint
-: Cellulitis
Subjective / Review of Systems
Patient seen and examined. Reports ongoing distal left leg discomfort, but medial left thigh discomfort has improved.
Review of Systems: No Fever and No Chills
Vital Signs / Physical Exam
Vital Signs
Vital Signs
Temp Pulse Resp BP Pulse Ox
98.4 F 64 20 129/61 98
05/07/25 07:22 05/07/25 07:22 05/07/25 07:22 05/07/25 07:22 05/07/25 07:22
Physical Exam
Constitutional: No Acute Distress, Comfortable and Non-toxic
Eyes: Sclera Anicteric
Pulmonary: Non Labored
Gastrointestinal: Soft and Non Tender
Extremities: Other (Left leg with improved erythema of the medial thigh. Clear vesicles noted in the knee area. Prior lateral calf vesicles have now crusted over. Ongoing erythema of calf area.)
Neurological: Awake and Alert
Psychological: Calm
Objective Data
Lab Data
Lab Results
05/07/25 06:25
05/07/25 06:25
Estimated Creat Clear 99 ml/min 05/07/25 06:25
Total Bilirubin Cancelled 05/02/25 19:42
AST Cancelled 05/02/25 19:42
ALT Cancelled 05/02/25 19:42
Alkaline Phosphatase Cancelled 05/02/25 19:42
Most recent labs reviewed.
Micro Results:
05/03/25 02:01 MRSA Screen - Final
Nose No Methicillin Resistant Staphylococcus aureus isolated.
[2025-05-07] MEDS: DILAUDID 2 MG PO ×2 (13:06→21:30)
--- NOTE | 2025-05-07 14:02 | CM ---
CM reviewed chart, patient seen bedside. Patient may require IV antibiotics, reports she has had IV antibiotics in the past set up through [facility], unsure agency. Patient confirms she lives alone, has done IV antibiotics herself. Patient
reports VN in past, unsure of agency. Patient reports walker, wheelchair, canes, grabber, electric recliner. Patient confirms she would be agreeable to infusion agency such as [facility]. CM will watch for home infusion needs.
Plan; may need IV antibiotics upon discharge
[2025-05-07 14:58] VITALS: BP 133/56
--- NOTE | 2025-05-07 14:58 | W.PN.UPDATE ---
Update Note
Progress Note Update
I have independently evaluated the patient at the bedside. Please refer to resident progress note for more detail.
AFVSS today. Resolved erythema to the left thigh and lower extremity, remains with vesicular lesion on the prepatellar region with crusting vesicles on the lateral posterior left calf. Pain improving with time and gabapentin. Exam otherwise
benign, normal cardiopulmonary exam and euvolemic. No purulence or fluctuant masses
Nonpurulent cellulitis of the LLE. Improving with IV vancomycin, has allergies to penicillins and cephalosporins as well as doxycycline. Will continue vancomycin for now. May ultimately need home course of IV vancomycin to complete therapy. Will
defer to ID. Recommendations appreciated. Continue to trend CBC and temperature curve. Monitor skin exam.
Vesicular rash of the LLE. PCR negative for HSV and VZV. Unclear etiology, will continue to monitor. Low suspicion for pemphigus or other autoimmunity. ID following, discontinued Valtrex
Carb controlled diet
SQ heparin
Full code
Expected discharge in 24 to 48 hours
[2025-05-07 17:17] LABS: Glucose - Point of Care 95 mg/dl (70-99)
[2025-05-07] MEDS: REMOVE LIDOCAINE PATCH 1 PATCH REMOVE (21:00)
[2025-05-07] MEDS: MYSOLINE 200 MG PO (21:18)
[2025-05-07] MEDS: LEXAPRO 10 MG PO (21:18)
[2025-05-07] MEDS: PROTONIX 40 MG PO (21:18)
[2025-05-07] MEDS: CLARITIN 10 MG PO (21:18)
[2025-05-07] MEDS: VITAMIN D3 (cholecalciferol) 25 MCG PO (21:18)
[2025-05-07] MEDS: LIPITOR 20 MG PO (21:18)
[2025-05-07] MEDS: AMBIEN 10 MG PO (21:18)
[2025-05-07] MEDS: SINGULAIR 10 MG PO (21:18)
[2025-05-07 22:00] LABS: Glucose - Point of Care 100 mg/dl (70-99)
[2025-05-07 23:00] VITALS: BP 135/62
[2025-05-08] MEDS: ROXICODONE 5 MG PO ×3 (02:49→19:33)
[2025-05-08] MEDS: SYNTHROID 100 MCG PO (05:11)
[2025-05-08] MEDS: VANCOCIN 275 MG IV (05:11)
[2025-05-08 07:30] VITALS: BP 111/64
[2025-05-08] MEDS: LIDOCAINE 4% PATCH 1 PATCH TOPICAL (07:35)
[2025-05-08] MEDS: VITAMIN B-12 1000 MCG PO (07:36)
[2025-05-08] MEDS: GLUCOPHAGE 1000 MG PO ×2 (07:36→17:44)
[2025-05-08] MEDS: ORETIC 12.5 MG PO (07:36)
[2025-05-08] MEDS: COZAAR 50 MG PO (07:36)
[2025-05-08] MEDS: NEURONTIN 300 MG PO ×3 (07:36→21:32)
[2025-05-08] MEDS: DILAUDID 2 MG PO ×2 (07:36→17:48)
[2025-05-08] MEDS: HEPARIN 5000 UNITS SC ×3 (07:36→23:00)
[2025-05-08] MEDS: ASPIR LOW (ENTERIC COATED) 81 MG PO (07:36)
[2025-05-08] MEDS: NORVASC 10 MG PO (07:36)
[2025-05-08 07:37] LABS: Glucose - Point of Care 100 mg/dl (70-99)
[2025-05-08] MEDS: ADVAIR HFA 45/21 MCG INHALER 2 PUFF INH ×2 (07:59→19:15)
[2025-05-08 08:24] LABS: Hematocrit 37.2 % (37.0-47.0); Hemoglobin 12.8 g/dL (12.0-16.0); Mean Corp Hgb Conc. 34.4 g/dL (33.0-37.0); Mean Corpuscular Volume 93.7 fL (81.0-99.0); Platelet Count 144 10^3/uL (130-400); Red Cell Dist. Width 12.5 % (11.5-14.5)
[2025-05-08 08:36] LABS: Blood Urea Nitrogen 9 mg/dl (7-17); Calcium 9.2 mg/dl (8.4-10.2); Carbon Dioxide 25 mmol/L (22-30); Chloride 107 mmol/L (98-107); Estimated Creatinine Clearance 99 ml/min; Glucose 90 mg/dl (70-99); Potassium 4.0 mmol/L (3.5-5.1); Sodium 136 mmol/L (135-145); eGFR > 60.00
--- NOTE | 2025-05-08 09:18 | W.PN.HOSP.TC ---
Today's Communication/Plan
-
VZV serology negative
stop valtrex
transition to daptomycin
Home IV in chart
Assessment / Plan
Assessment / Plan
Isabela Garsia is a 64-year-old female with a significant past medical history of rheumatoid arthritis and diabetes type II A1c 5.4% CVA in September 23, lower extremity ulcers, being evaluated for left lower extremity pain. The patient reports that
she has been followed at the [facility] wound care center for the past year for a right lower extremity wound which is improving. She additionally notes a small left lower extremity wound which has also improved. she notes approximately 5
days ago she developed some tiny bumps on her left lower extremity. She contacted her family doctor and she was placed on a Medrol Dosepak. She notes that she developed a spreading rash down her leg which was 'raised, hot and painful'. She
subsequently noted some purpleish discoloration to her leg. The Medrol Dosepak did not help. In the ED ultrasound did not show DVT, she was started on vancomycin, ID was consulted who thought that her rash looked more like vesicles with the
possibility of VZV. She was started on Valtrex and swabbed for PCR. She has been improving with lesions crusting over and producing straw-colored fluid. Patient's pain under control with medications. HSV 1, 2 serology negative, VZV serology
negative. Patient to go home with IV antibiotics per ID recs.
#Left Lower rash improving
Cellulitis versus VZV
Unable to determine if due to type II DM
patients left lower extremity with expanding redness, warmth with cellulitic appearance. There are areas that look like purpura as well, PLT 114
stop Medrol dose pack
vanco and valtrex ended 05/08
Lesions swabbed for PCR. PCR negative for HSV 1 and 2, VZV
ID consult
Transition to daptomycin 1 g IV 24 hours. Would continue to treat through 05/17/2025.
Hold atorvastatin while patient remains on daptomycin.
Given swabs were negative for VZV and HSV; discontinue further Valtrex.
Continue with lower extremity compression.
Home IV sheet placed on paper chart.
Pain control as needed
Acetaminophen, oxycodone, hydromorphone p.o. 2 mg
# Muscle pain improving
Right thigh hip area
Lidocaine patch
Pain control as needed
# Lower extremity ulcer
Bilateral ulcers on left lateral malleolus right medial malleolus
Being followed by wound care outpatient
Wound care consult
Continue to monitor
# Headache, resolved
Holocephalic 6 out of 10
No nausea or vomiting
Started after administration of antibiotics/Valtrex
Encouraged p.o. intake
Encourage Tylenol as needed
Continue to monitor
#RA
Hold hydroxychloroquine
Hold leflunomide during active infection
patient receives outpatient Actemra injections next May 13
#CVA
August 2024
continue aspirin
Hold statin
#thrombocytopenia improving
Mild, platelets 114, 110, 122 108 133 127 144
Multifactorial
in setting of acute infection vancomycin Valtrex
Continue to monitor
#Essential HTN
Amlodipine
Losartan-HCTZ
#DM type II
Continue metformin
hold ozempic
-ISS low
#Hypothyroidism
Continue Synthroid
#GERD
Continue PPI
#Insomnia
Continue Ambien
#Depression/Anxiety
Continue Lexapro
DVT PPx
SCD on right leg (hold off on heparin product with mildly low PLT and leg appearance for now) encourage ambulation
CODE STATUS
FULL CODE
Anticipated Discharge: Within 24 hours
Subjective/Interval History
-
Patient seen at bedside reports feeling a lot better. No acute events overnight. Patient talked with KOFFI Claros about transitioning home with with IV antibiotics. Patient amenable. No headaches, no other complaints. date of Service: May 08, 2025
Objective Data
-
Labs:
Laboratory Results
05/08/25
07:27
WBC 5.8
Hgb 12.8
Hct 37.2
Plt Count 144
Sodium 136
Potassium 4.0
Chloride 107
Carbon Dioxide 25
BUN 9
Creatinine 0.5 L
Glucose 90
Calcium 9.2
Vital Signs:
Vital Signs
Temp Pulse Resp BP Pulse Ox
98.0 F 65 18 111/64 93
05/08/25 07:30 05/08/25 07:30 05/08/25 08:08 05/08/25 07:30 05/08/25 08:08
I&O
05/07/25 05/08/25 05/09/25
06:59 06:59 06:59
Intake Total 2704 / 2704
Balance 2704
Review of Systems
-
History Source: Patient
All other systems: Reviewed and negative
Constitutional: Reports No Symptoms; Denies Fever or Fatigue
Respiratory: Reports No Symptoms; Denies Cough or Trouble Breathing
Cardiac: Reports No Symptoms; Denies Chest Pain or Palpitations
Abdomen/GI: Reports No Symptoms; Denies Abdominal Pain, Nausea, Vomiting or Diarrhea
Genitourinary: Reports No Symptoms; Denies Dysuria
Musculoskeletal: Reports No Symptoms; Denies Joint Pain
Skin: Reports Rash
Neuro: Reports No Symptoms; Denies Headache
Physical Exam
-
General: Well Developed, Well Nourished, No Apparent Distress, Comfortable and Obese
HEENT: Normocephalic and Atraumatic
Respiratory: Clear to Auscultation; Negative Wheezes or Crackles
Cardiac: Regular Rhythm and S1/S2; Negative Murmur
Breast: Deferred by me
GI: Soft, Nontender, Nondistended and Normal Bowel Sounds
Musculoskeletal: No Clubbing, No Cyanosis and No Edema
Skin: Warm, Dry and Lesions (Left lower extremity, crusted lesions on lateral left leg, papules on left knee, overall erythema reduced)
Neuro: Awake, Alert and Oriented
--- NOTE | 2025-05-08 10:48 | PHA.VAN.FU ---
Vancomycin Assessment / Plan
- Assessment
Renal Function: Stable
WBC's are: WNL
In the past 24 hrs, patient has been: Afebrile
- Dosing Plan
Continue: Vanc 1250mg Q12H
- Monitoring Plan
Level(s) appropriate: Recheck trough at minimum of weekly intervals, Repeat sooner for changes in renal function or clinical status
Next Level Due (Date): ~05/13
- Follow Up
Pharmacy will continue to follow.
Vancomycin Follow UP
- -
Patient Age: 64
Patient Sex: Female
Vancomycin Day #: 6
Indication: Skin And Soft Tissue
Requesting Provider: Dr. Mayorga / Dr. King
Pertinent Antimicrobial Allergies:
amoxicillin - anaphylaxis
cephalexin - hives
doxycycline - hives
Height / Weight:
Height 5 ft 1 in
Actual Weight 98.486 kg
Pertinent Past Medical History: BMI ~41
- Vital Signs / Lab Results
Temp Pulse Resp BP Pulse Ox
98.0 F 65 18 111/64 93
05/08/25 07:30 05/08/25 07:30 05/08/25 08:08 05/08/25 07:30 05/08/25 08:08
Lab Results - Hematology
05/06/25 05/07/25 05/08/25
05:53 06:25 07:27
WBC 9.3 6.5 5.8
Lab Results - Chemistry
05/06/25 05/07/25 05/08/25
05:53 06:25 07:27
BUN 8 11 9
Creatinine 0.5 L 0.5 L 0.5 L
Estimated Creat Clear 99 99 99
Therapeutic Drug Monitoring
Vancomycin Peak 26.2 ug/ml (18-26) H 05/05/25 21:28
Vancomycin Trough 11.8 ug/ml (5-20) 05/06/25 05:53
--- NOTE | 2025-05-08 11:01 | W.PN.ID1 ---
Date of Service
Date of Service: May 08, 2025
Today's Communication
Transition to daptomycin.
Assessment / Plan
Left leg rash/discoloration
Left lateral calf lesions; ?Vesicles
- Swab negative for VZV and HSV
Multiple antibiotic allergies including amoxicillin, cephalosporins, doxycycline
Asthma
DM
HTN
HLD
Hypothyroidism
RA (on Actemra, hydroxychloroquine)
Fibromyalgia
Recommendations:
Left leg improved, although improvement is very slow at this point.
Patient will require a course of home IV antibiotics, given her extensive allergy list.
Transition to daptomycin 1 g IV 24 hours. Would continue to treat through 05/17/2025.
Hold atorvastatin while patient remains on daptomycin.
Given swabs were negative for VZV and HSV; discontinue further Valtrex.
Continue with lower extremity compression.
Home IV sheet placed on paper chart.
����������������������������������������������������������
Chief Complaint
-: Cellulitis
Subjective / Review of Systems
Patient seen and examined. Reports ongoing left lower extremity discomfort with palpation over the left lateral calf area, although notes improved lower extremity edema
Review of Systems: No Fever and Chills
Vital Signs / Physical Exam
Vital Signs
Vital Signs
Temp Pulse Resp BP Pulse Ox
98.0 F 65 18 111/64 93
05/08/25 07:30 05/08/25 07:30 05/08/25 08:08 05/08/25 07:30 05/08/25 08:08
Physical Exam
Constitutional: No Acute Distress, Comfortable and Non-toxic
Eyes: Sclera Anicteric
Pulmonary: Non Labored
Gastrointestinal: Soft and Non Tender
Extremities: Other (Left leg with improved erythema of the medial thigh. Clear vesicles noted in the knee area. Prior lateral calf vesicles have now crusted over. Ongoing erythema of calf area.)
Musculoskeletal: Other (Tenderness of left lateral calf.)
Neurological: Awake and Alert
Psychological: Calm
Objective Data
Lab Data
Lab Results
05/08/25 07:27
05/08/25 07:27
Estimated Creat Clear 99 ml/min 05/08/25 07:27
Total Bilirubin Cancelled 05/02/25 19:42
AST Cancelled 05/02/25 19:42
ALT Cancelled 05/02/25 19:42
Alkaline Phosphatase Cancelled 05/02/25 19:42
Most recent labs reviewed.
Micro Results:
05/03/25 02:01 MRSA Screen - Final
Nose No Methicillin Resistant Staphylococcus aureus isolated.
[2025-05-08 11:49] LABS: Glucose - Point of Care 94 mg/dl (70-99)
[2025-05-08] MEDS: CUBICIN 20 MG IV (13:27)
[2025-05-08 15:25] VITALS: BP 151/64
[2025-05-08 16:46] LABS: Glucose - Point of Care 147 mg/dl (70-99)
--- NOTE | 2025-05-08 16:58 | CM ---
Spoke with attending who stated that patient is stable for discharge and needs IV ABX. Script on chart. Midline placed. Placed a call to Kaleigh at [facility] to determine if she could accept patient. Left a voice mail message. Will call again if no
return call has been received so that all information can be faxed.
Plan: Case management will continue to follow and assist with discharge planning. Home with IV ABX.
[2025-05-08] MEDS: REMOVE LIDOCAINE PATCH 1 PATCH REMOVE (21:30)
[2025-05-08] MEDS: CLARITIN 10 MG PO (21:30)
[2025-05-08] MEDS: MYSOLINE 200 MG PO (21:31)
[2025-05-08] MEDS: LEXAPRO 10 MG PO (21:31)
[2025-05-08] MEDS: VITAMIN D3 (cholecalciferol) 25 MCG PO (21:32)
[2025-05-08] MEDS: SINGULAIR 10 MG PO (21:32)
[2025-05-08] MEDS: PROTONIX 40 MG PO (21:32)
[2025-05-08 21:33] LABS: Glucose - Point of Care 117 mg/dl (70-99)
[2025-05-08] MEDS: AMBIEN 10 MG PO (21:40)
[2025-05-08 23:06] VITALS: BP 146/63
[2025-05-09] MEDS: DILAUDID 2 MG PO (02:36)
[2025-05-09 03:56] LABS: Hematocrit 35.0 % (37.0-47.0); Hemoglobin 12.1 g/dL (12.0-16.0); Mean Corp Hgb Conc. 34.6 g/dL (33.0-37.0); Mean Corpuscular Volume 94.1 fL (81.0-99.0); Platelet Count 142 10^3/uL (130-400); Red Cell Dist. Width 12.5 % (11.5-14.5)
[2025-05-09 04:19] LABS: Blood Urea Nitrogen 9 mg/dl (7-17); Calcium 9.4 mg/dl (8.4-10.2); Carbon Dioxide 26 mmol/L (22-30); Chloride 107 mmol/L (98-107); Estimated Creatinine Clearance 99 ml/min; Glucose 96 mg/dl (70-99); Potassium 4.0 mmol/L (3.5-5.1); Sodium 136 mmol/L (135-145); eGFR > 60.00
[2025-05-09] MEDS: SYNTHROID 100 MCG PO (06:08)
[2025-05-09] MEDS: ROXICODONE 5 MG PO (07:02)
[2025-05-09 07:07] LABS: Glucose - Point of Care 98 mg/dl (70-99)
[2025-05-09 07:28] VITALS: BP 126/53
[2025-05-09] MEDS: ADVAIR HFA 45/21 MCG INHALER 2 PUFF INH (07:59)
[2025-05-09] MEDS: LIDOCAINE 4% PATCH TOPICAL (08:24)
[2025-05-09] MEDS: VITAMIN B-12 1000 MCG PO (08:25)
[2025-05-09] MEDS: NORVASC 10 MG PO (08:25)
[2025-05-09] MEDS: ASPIR LOW (ENTERIC COATED) 81 MG PO (08:25)
[2025-05-09] MEDS: NEURONTIN 300 MG PO (08:25)
[2025-05-09] MEDS: GLUCOPHAGE 1000 MG PO (08:25)
[2025-05-09] MEDS: ORETIC 12.5 MG PO (08:26)
[2025-05-09] MEDS: HEPARIN 5000 UNITS SC (08:26)
[2025-05-09] MEDS: COZAAR 50 MG PO (08:26)
--- NOTE | 2025-05-09 08:59 | W.PN.HOSP.TC ---
Today's Communication/Plan
-
Midline in place
No acute issues
Patient medically stable for discharge
Assessment / Plan
Assessment / Plan
Isabela Garsia is a 64-year-old female with a significant past medical history of rheumatoid arthritis and diabetes type II A1c 5.4% CVA in September 23, lower extremity ulcers, being evaluated for left lower extremity pain. The patient reports that
she has been followed at the [facility] wound care center for the past year for a right lower extremity wound which is improving. She additionally notes a small left lower extremity wound which has also improved. she notes approximately 5
days ago she developed some tiny bumps on her left lower extremity. She contacted her family doctor and she was placed on a Medrol Dosepak. She notes that she developed a spreading rash down her leg which was 'raised, hot and painful'. She
subsequently noted some purpleish discoloration to her leg. The Medrol Dosepak did not help. In the ED ultrasound did not show DVT, she was started on vancomycin, ID was consulted who thought that her rash looked more like vesicles with the
possibility of VZV. She was started on Valtrex and swabbed for PCR. She has been improving with lesions crusting over and producing straw-colored fluid. Patient's pain under control with medications. HSV 1, 2 serology negative, VZV serology
negative. Patient to go home with IV antibiotics per ID recs. Midline was inserted on right upper extremity. Patient clinically stable for discharge.
#Left Lower rash improving
Cellulitis versus VZV
Unable to determine if due to type II DM
patients left lower extremity with expanding redness, warmth with cellulitic appearance. There are areas that look like purpura as well, PLT 114
stop Medrol dose pack
vanco and valtrex stopped 05/08
Lesions swabbed for PCR. PCR negative for HSV 1 and 2, VZV
ID consult
Transition to daptomycin 1 g IV 24 hours. Would continue to treat through 05/17/2025.
Hold atorvastatin while patient remains on daptomycin.
Given swabs were negative for VZV and HSV; discontinue further Valtrex.
Continue with lower extremity compression.
Home IV sheet placed on paper chart.
Pain control as needed
Acetaminophen, oxycodone, hydromorphone p.o. 2 mg
# Muscle pain improving
Right thigh hip area
Lidocaine patch
Pain control as needed
# Lower extremity ulcer
Bilateral ulcers on left lateral malleolus right medial malleolus
Being followed by wound care outpatient
Wound care consult
Continue to monitor
# Headache, resolved
Holocephalic 6 out of 10
No nausea or vomiting
Started after administration of antibiotics/Valtrex
Encouraged p.o. intake
Encourage Tylenol as needed
Continue to monitor
#RA
Hold hydroxychloroquine
Hold leflunomide during active infection
patient receives outpatient Actemra injections next May 13
#CVA
August 2024
continue aspirin
Hold statin
#thrombocytopenia improving
Mild, platelets 114, 110, 122 108 133 127 144 142
Multifactorial
in setting of acute infection vancomycin Valtrex
Continue to monitor
#Essential HTN
Amlodipine
Losartan-HCTZ
#DM type II
Continue metformin
hold ozempic
-ISS low
#Hypothyroidism
Continue Synthroid
#GERD
Continue PPI
#Insomnia
Continue Ambien
#Depression/Anxiety
Continue Lexapro
DVT PPx
SCD on right leg (hold off on heparin product with mildly low PLT and leg appearance for now) encourage ambulation
CODE STATUS
FULL CODE
Anticipated Discharge: Today
Subjective/Interval History
-
Patient says she is doing a lot better. Her pain has decreased but swelling has decreased. She is concerned about operating antibiotics at home to her arthritis.she is unable to operate the IV bag, looks better with the sphere.otherwise has no
complaints. Date of Service: May 09, 2025
Objective Data
-
Labs:
Laboratory Results
05/09/25
03:37
WBC 5.8
Hgb 12.1
Hct 35.0 L
Plt Count 142
Sodium 136
Potassium 4.0
Chloride 107
Carbon Dioxide 26
BUN 9
Creatinine 0.5 L
Glucose 96
Calcium 9.4
Vital Signs:
Vital Signs
Temp Pulse Resp BP Pulse Ox
97.6 F 64 16 126/53 97
05/08/25 23:06 05/09/25 08:25 05/09/25 08:01 05/09/25 08:25 05/09/25 08:01
I&O
05/08/25 05/09/25 05/10/25
06:59 06:59 06:59
Intake Total 1964 1200 / 1200
Balance 1964 1200 / 1200
Review of Systems
-
History Source: Patient
Constitutional: Reports No Symptoms; Denies Fever or Fatigue
EENT: Reports No Symptoms Reported; Denies Tearing or Runny Nose
Respiratory: Reports No Symptoms; Denies Cough or Trouble Breathing
Cardiac: Reports No Symptoms; Denies Chest Pain
Abdomen/GI: Reports No Symptoms; Denies Abdominal Pain, Nausea, Vomiting or Diarrhea
Genitourinary: Reports No Symptoms; Denies Dysuria
Neuro: Reports No Symptoms; Denies Dizzy or Headache
Physical Exam
-
General: Well Developed, Well Nourished, No Apparent Distress and Comfortable
HEENT: Normocephalic and Atraumatic
Respiratory: Clear to Auscultation; Negative Wheezes or Crackles
Cardiac: Regular Rhythm and S1/S2; Negative Irregular Rhythm, Murmur or Rub
GI: Soft, Nontender, Nondistended and Normal Bowel Sounds
Musculoskeletal: No Clubbing, No Cyanosis and No Edema
Skin: Warm, Dry, Rash (Vesicular on left lower extremity, scabbing over) and Ulcers (malleoli of right leg left leg)
Neuro: Awake, Alert and Oriented
Psych: Calm
--- NOTE | 2025-05-09 10:07 | W.PN.ID1 ---
Date of Service
Date of Service: May 09, 2025
Today's Communication
Continue antibiotics
Assessment / Plan
Left leg rash/discoloration
Left lateral calf lesions; ?Vesicles
- Swab negative for VZV and HSV
Multiple antibiotic allergies including amoxicillin, cephalosporins, doxycycline
Asthma
DM
HTN
HLD
Hypothyroidism
RA (on Actemra, hydroxychloroquine)
Fibromyalgia
Recommendations:
Left leg improved, although improvement is very slow at this point.
Continue daptomycin 1 g IV 24 hours. Would continue to treat through 05/17/2025.
Hold atorvastatin while patient remains on daptomycin.
Continue with lower extremity compression.
Home IV sheet placed on paper chart.
����������������������������������������������������������
Chief Complaint
-: Cellulitis
Subjective / Review of Systems
Patient seen and examined. Reports he is feeling somewhat improved. Still with some left lateral calf tenderness.
Vital Signs / Physical Exam
Vital Signs
Vital Signs
Temp Pulse Resp BP Pulse Ox
98.1 F 64 16 126/53 97
05/09/25 07:28 05/09/25 08:25 05/09/25 08:01 05/09/25 08:25 05/09/25 08:01
Physical Exam
Constitutional: No Acute Distress, Comfortable and Non-toxic
Eyes: Sclera Anicteric
Pulmonary: Non Labored
Gastrointestinal: Soft and Non Tender
Extremities: Other (Left leg with improved erythema of the medial thigh. Clear vesicles noted in the knee area; crusting. Prior lateral calf vesicles have now crusted over. Ongoing erythema of calf area.)
Musculoskeletal: Other (Tenderness of left lateral calf.)
Neurological: Awake and Alert
Psychological: Calm
Objective Data
Lab Data
Lab Results
05/09/25 03:37
05/09/25 03:37
Estimated Creat Clear 99 ml/min 05/09/25 03:37
Total Bilirubin Cancelled 05/02/25 19:42
AST Cancelled 05/02/25 19:42
ALT Cancelled 05/02/25 19:42
Alkaline Phosphatase Cancelled 05/02/25 19:42
Most recent labs reviewed.
Micro Results:
05/03/25 02:01 MRSA Screen - Final
Nose No Methicillin Resistant Staphylococcus aureus isolated.
[2025-05-09 11:23] LABS: Glucose - Point of Care 104 mg/dl (70-99)
--- NOTE | 2025-05-09 11:35 | W.DCSUMMARY ---
Documented by User: Ayala Velasquez MD, Resident 05/09/25 11:45
Discharge Summary
Discharge Data
Date of Admission: 05/03/25
Date of Discharge: 05/09/25
-
Pending Results: No
Hospital Course
Discharging Physician : Dr. Bynum, Dr. Velasquez
Disposition : Home
Primary care physician : Darlyn Carbajal MD
Principal Discharge diagnosis :
Left lower extremity cellulitis
Chronic Discharge diagnosis :
CVA history
Type 2 diabetes
Fibromyalgia
Rheumatoid arthritis
Hospital Course :
Isabela Garsia is a 64-year-old female with a significant past medical history of rheumatoid arthritis fibromyalgia and diabetes type II A1c 5.4% CVA in August 2024, lower extremity ulcers, being evaluated for left lower extremity pain. The patient
reports that she has been followed at the [facility] wound care center for the past year for a right lower extremity wound which is improving. She additionally notes a small left lower extremity wound which has also improved. she notes
approximately 5 days ago she developed some tiny bumps on her left lower extremity. She contacted her family doctor and she was placed on a Medrol Dosepak. She notes that she developed a spreading rash down her leg which was 'raised, hot and
painful'. She subsequently noted some purpleish discoloration to her leg. The Medrol Dosepak did not help.
In the ED ultrasound did not show DVT, she was started on vancomycin. Labs on admission all within normal limits with mild thrombocytopenia. ID was consulted who thought that her rash looked more like vesicles with the possibility of VZV. She was
started on Valtrex and swabbed for PCR. She has been improving with lesions crusting over and producing straw-colored fluid. Patient's pain under control with medications. HSV 1, 2 serology negative, VZV serology negative. Patient's antiviral
regimen stopped, transitioned vancomycin to daptomycin. Patient to go home with IV antibiotics per ID rec through 05/17. Midline was placed on right arm. Labs at discharge within normal limits, with the exception of platelets. Thrombocytopenia
was monitored during his hospital stay likely in the setting of infection and or appropriate medical therapy. Patient medically stable for discharge.
Important imaging findings :
Serology:
VZV negative
HSV 1 negative
HSV-2 negative
Procedure findings :
Left lower extremity ultrasound 05/02
IMPRESSION:
No sonographic evidence for left lower extremity deep venous thrombosis.
Discharge Plan
-
Patient Disposition: Home (Routine Discharge)
Discharge Diagnosis/Procedures: Cellulitis Left Lower Extremity, RLE ulcer, LLE ulcer
Condition: Good
Diet: As tolerated
Activity: No restrictions
Driving Restrictions: As prior to admission
Blood Work: repeat BMP, CBC in 1week
Activity Restrictions/Additional Instructions:
Wound Care Instructions Left Medial Ankle Wound- Clean with normal saline, apply Collagen gel and cover with silicone border foam. Change daily and PRN drainage.
Follow up at [facility] on 05/09 as scheduled
Referrals:
[facility] [Provider Group]
Referral Note: pt with LLE rash, shingles versus cellulitis, serology negative
Darlyn Carbajal MD [Family Provider, Family Practice] - in less than 1 week
Additional Discharge Medication Instructions: follow up with dermatology if no improvement of rash
Prescriptions:
New
DAPTOmycin [Cubicin] 1000 MG
Syringe [Syringe-Pump] 0 ML
As Directed mls/hr IV Q24H
Reason for use: Infection
Ordered By: Ayala Velasquez MD, Resident
Last Taken: 05/09/25 13:26 20 mls
Continued
escitalopram oxalate 10 MG tablet
10 mg PO HS
gabapentin 300 MG capsule
300 mg PO DAILY
omeprazole 40 MG capsule,delayed release(DR/EC)
40 mg PO HS
cyanocobalamin (vitamin B-12) 1,000 MCG tablet
1,000 mcg PO DAILY
amlodipine 10 MG tablet
10 mg PO DAILY
zolpidem 10 MG tablet
10 mg PO HS
fluticasone propionate 50 mcg/actuation Deridder,Suspension
2 spray INTRANASAL DAILY
primidone 50 mg Tablet
200 mg PO HS
acetaminophen-codeine 300-30 mg Tablet
1 tab PO Q6HPRN PRN (Reason: severe pain)
teriparatide [Forteo] 20 mcg/dose (560mcg/2.24mL) Pen Injector
20 mcg SC HS
meloxicam 15 mg Tablet
15 mg PO DAILY
Patient Comments:
05/02/2025, currently on hold per pt. while taking Medrol dosepak.
therapeutic multivitamin Tablet
1 tab PO DAILY
aspirin 81 mg Tablet,Delayed Release (Dr/Ec)
81 mg PO DAILY
levothyroxine 100 mcg Tablet
100 mcg PO DAILY
metformin 1,000 mg Tablet
1,000 mg PO BID
montelukast 10 mg Tablet
10 mg PO HS
fluticasone propion-salmeterol 100-50 mcg/dose Blister With Device
1 inh INHALATION R BID
losartan-hydrochlorothiazide 50-12.5 mg Tablet
1 tab PO DAILY
loratadine [Claritin] 10 mg Tablet
10 mg PO HS
cholecalciferol (vitamin D3) 25 mcg (1,000 unit) Tablet
25 mcg PO HS
omega 0-jov-yjy-fish oil [Fish Oil] 1,000 (120-180) mg Capsule
1 cap PO HS
Ozempic 2 mg/dose (8 mg/3 mL) Pen Injector
2 mg SC TH
Held
simvastatin 40 MG tablet
40 mg PO HS
Hold Instructions: Resume on 05/28/25. until after completion of antibiotics and follow up
Actemra
0 mg IV Q4W
Hold Instructions: Resume on 05/16/25. hold until follow up with PCP or call infusion center
Patient Comments:
05/02/2025, pt. gets this infusion through [facility]; could not confirm dose at time of interview.
leflunomide 20 mg Tablet
20 mg PO HS
Hold Instructions: Resume on 05/28/25. until after completions of antibiotics and follow up
hydroxychloroquine 200 mg Tablet
400 mg PO QPM
Hold Instructions: Resume on 05/28/25. until after completion of antibiotics and follow up
Discontinued
methylprednisolone 4 mg Tablets,Dose Pack
0 mg PO PER PKG DIR
Patient Comments:
05/02/2025, filled on 04/29/2025 for 6-day course; pt. is on 4th day of use per pt.
Discharge Orders:
Discharge Patient (As Directed); Ordered 05/09/25
Ordered By: Ayala Velasquez
Discharge Date and Time
Discharge Date/Time: 05/09/25 15:17
Print Language: BRITISH

Documented by User: Dennis Bynum DO 05/09/25 16:43
Discharge Summary
Discharge Data
Date of Admission: 05/03/25
Date of Discharge: 05/09/25
Total time spent discharging patient (in min): 33
Discharge Plan
-
Patient Disposition: Home (Routine Discharge)
Discharge Diagnosis/Procedures: Cellulitis Left Lower Extremity, RLE ulcer, LLE ulcer
Condition: Good
Diet: As tolerated
Activity: No restrictions
Driving Restrictions: As prior to admission
Blood Work: repeat BMP, CBC in 1week
Activity Restrictions/Additional Instructions:
Wound Care Instructions Left Medial Ankle Wound- Clean with normal saline, apply Collagen gel and cover with silicone border foam. Change daily and PRN drainage.
Follow up at [facility] on 05/09 as scheduled
Referrals:
[facility] [Provider Group]
Referral Note: pt with LLE rash, shingles versus cellulitis, serology negative
Darlyn Carbajal MD [Family Provider, [facility]] - in less than 1 week
Additional Discharge Medication Instructions: follow up with dermatology if no improvement of rash
Prescriptions:
New
DAPTOmycin [Cubicin] 1000 MG
Syringe [Syringe-Pump] 0 ML
As Directed mls/hr IV Q24H
Reason for use: Infection
Ordered By: Ayala Velasquez MD, Resident
Last Taken: 05/09/25 13:26 20 mls
Continued
escitalopram oxalate 10 MG tablet
10 mg PO HS
gabapentin 300 MG capsule
300 mg PO DAILY
omeprazole 40 MG capsule,delayed release(DR/EC)
40 mg PO HS
cyanocobalamin (vitamin B-12) 1,000 MCG tablet
1,000 mcg PO DAILY
amlodipine 10 MG tablet
10 mg PO DAILY
zolpidem 10 MG tablet
10 mg PO HS
fluticasone propionate 50 mcg/actuation Deridder,Suspension
2 spray INTRANASAL DAILY
primidone 50 mg Tablet
200 mg PO HS
acetaminophen-codeine 300-30 mg Tablet
1 tab PO Q6HPRN PRN (Reason: severe pain)
teriparatide [Forteo] 20 mcg/dose (560mcg/2.24mL) Pen Injector
20 mcg SC HS
meloxicam 15 mg Tablet
15 mg PO DAILY
Patient Comments:
05/02/2025, currently on hold per pt. while taking Medrol dosepak.
therapeutic multivitamin Tablet
1 tab PO DAILY
aspirin 81 mg Tablet,Delayed Release (Dr/Ec)
81 mg PO DAILY
levothyroxine 100 mcg Tablet
100 mcg PO DAILY
metformin 1,000 mg Tablet
1,000 mg PO BID
montelukast 10 mg Tablet
10 mg PO HS
fluticasone propion-salmeterol 100-50 mcg/dose Blister With Device
1 inh INHALATION R BID
losartan-hydrochlorothiazide 50-12.5 mg Tablet
1 tab PO DAILY
loratadine [Claritin] 10 mg Tablet
10 mg PO HS
cholecalciferol (vitamin D3) 25 mcg (1,000 unit) Tablet
25 mcg PO HS
omega 2-zfo-jkt-fish oil [Fish Oil] 1,000 (120-180) mg Capsule
1 cap PO HS
Ozempic 2 mg/dose (8 mg/3 mL) Pen Injector
2 mg SC TH
Held
simvastatin 40 MG tablet
40 mg PO HS
Hold Instructions: Resume on 05/28/25. until after completion of antibiotics and follow up
Actemra
0 mg IV Q4W
Hold Instructions: Resume on 05/16/25. hold until follow up with PCP or call infusion center
Patient Comments:
05/02/2025, pt. gets this infusion through [facility]; could not confirm dose at time of interview.
leflunomide 20 mg Tablet
20 mg PO HS
Hold Instructions: Resume on 05/28/25. until after completions of antibiotics and follow up
hydroxychloroquine 200 mg Tablet
400 mg PO QPM
Hold Instructions: Resume on 05/28/25. until after completion of antibiotics and follow up
Discontinued
methylprednisolone 4 mg Tablets,Dose Pack
0 mg PO PER PKG DIR
Patient Comments:
05/02/2025, filled on 04/29/2025 for 6-day course; pt. is on 4th day of use per pt.
Discharge Orders:
Discharge Patient (As Directed); Ordered 05/09/25
Ordered By: Ayala Velasquez
Discharge Date and Time
Discharge Date/Time: 05/09/25 15:17
Print Language: BRITISH
--- NOTE | 2025-05-09 11:58 | CM ---
CM reviewed chart, patient seen bedside, will require IV antibiotics upon discharge. Clinicals/script faxed to K[facility] at [facility], patient covered at 100 percent. Kaleigh will come to Hospital today to do bedside teaching, supplies to be delivered
tonight, patient will receive dose prior to discharge. IMM reviewed, signed, placed in chart, patient declining need for copy. Patient confirms she will transport self home. CM will continue to follow for all discharge planning needs.
Plan; home with [facility] home antibiotics
[facility]
[2025-05-09] MEDS: CUBICIN 20 MG IV (13:26)
[2025-05-09 14:17] VITALS: BP 121/62
== END 2025-05-09 15:17 | disposition home or self-care (01) | DRG 638 ==
LOC: 4 WEST ACU 00:36
PROVIDERS: Internal Medicine; Student in an Organized Health Care Education/Training Program; ADMITTING PHYSICIAN Student in an Organized Health Care Education/Training Program; ATTENDING PHYSICIAN Internal Medicine; CONSULT PHYSICIAN Internal Medicine Infectious Disease; EMERGENCY PHYSICIAN Student in an Organized Health Care Education/Training Program; FAMILY PHYSICIAN Family Medicine
DX: E11.622 Type 2 diabetes mellitus with other skin ulcer (principal); L03.116 Cellulitis of left lower limb; Z68.41 Body mass index [BMI] 40.0-44.9, adult; L97.329 Non-pressure chronic ulcer of left ankle with unspecified severity; M06.9 Rheumatoid arthritis, unspecified; E03.9 Hypothyroidism, unspecified; E78.00 Pure hypercholesterolemia, unspecified; I10 Essential (primary) hypertension; M19.90 Unspecified osteoarthritis, unspecified site; D69.2 Other nonthrombocytopenic purpura; M79.7 Fibromyalgia; D69.6 Thrombocytopenia, unspecified; K21.9 Gastro-esophageal reflux disease without esophagitis; G47.00 Insomnia, unspecified; F32.A Depression, unspecified; F41.9 Anxiety disorder, unspecified; R51.9 Headache, unspecified; J45.909 Unspecified asthma, uncomplicated; E66.01 Morbid (severe) obesity due to excess calories; M79.18 Myalgia, other site; B02.9 Zoster without complications; Z60.2 Problems related to living alone; Z96.611 Presence of right artificial shoulder joint; Z96.612 Presence of left artificial shoulder joint; Z96.659 Presence of unspecified artificial knee joint; Z79.84 Long term (current) use of oral hypoglycemic drugs; Z79.890 Hormone replacement therapy; Z79.82 Long term (current) use of aspirin; Z88.1 Allergy status to other antibiotic agents; Z88.0 Allergy status to penicillin; Z91.048 Other nonmedicinal substance allergy status; Z86.73 Personal history of transient ischemic attack (TIA), and cerebral infarction without residual deficits
CPT/HCPCS: 80048; 80202; 82962; 83036; 83735; 85025; 85027; 87070; 87529; 87798; 93971; 94640; 96365; 96366; 96375; 99284; J0878

== ENCOUNTER 2025-05-20 12:25 | Outpatient (RCR) | payer MEDICARE, OTHER, SELFPAY ==
[2025-05-20 13:00] VITALS: BP 159/59
[2025-05-20 13:15] VITALS: BMI 41.1
[2025-05-20] MEDS: ACTEMRA 100 MG IV (13:20)
[2025-05-20 14:40] VITALS: BP 119/47
== END 2025-05-21 11:16 | disposition home or self-care (01) ==
LOC: OID 12:25
PROVIDERS: ATTENDING PHYSICIAN Internal Medicine; FAMILY PHYSICIAN Family Medicine
DX: M05.79 Rheumatoid arthritis with rheumatoid factor of multiple sites without organ or systems involvement (principal)
CPT/HCPCS: 96413; J3262

== ENCOUNTER 2025-06-17 12:28 | Outpatient (RCR) | payer MEDICARE, OTHER, SELFPAY ==
[2025-06-17 13:10] VITALS: BP 132/53
[2025-06-17] MEDS: ACTEMRA 100 MG IV (13:26)
[2025-06-17 13:29] VITALS: BMI 40.5
[2025-06-17 14:40] VITALS: BP 124/54
== END 2025-06-18 09:32 | disposition home or self-care (01) ==
LOC: OID 12:28
PROVIDERS: ATTENDING PHYSICIAN Internal Medicine; FAMILY PHYSICIAN Family Medicine
DX: M05.79 Rheumatoid arthritis with rheumatoid factor of multiple sites without organ or systems involvement (principal)
CPT/HCPCS: 96365; J3262

== ENCOUNTER 2025-07-15 12:24 | Outpatient (RCR) | payer MEDICARE, OTHER, SELFPAY ==
[2025-07-15] MEDS: ACTEMRA 100 MG IV (13:16)
[2025-07-15 13:24] VITALS: BP 123/50
== END 2025-07-16 09:24 | disposition home or self-care (01) ==
LOC: OID 12:24
PROVIDERS: ATTENDING PHYSICIAN Internal Medicine; FAMILY PHYSICIAN Family Medicine
DX: M05.79 Rheumatoid arthritis with rheumatoid factor of multiple sites without organ or systems involvement (principal)
CPT/HCPCS: 96365; J3262

== ENCOUNTER 2025-08-12 11:01 | Outpatient (RCR) | payer MEDICARE, OTHER, SELFPAY ==
[2025-08-12] MEDS: ACTEMRA 100 MG IV (12:02)
[2025-08-12 12:09] VITALS: BP 135/72
== END 2025-08-13 09:24 | disposition home or self-care (01) ==
LOC: OID 11:01
PROVIDERS: ATTENDING PHYSICIAN Internal Medicine; FAMILY PHYSICIAN Family Medicine
DX: M05.79 Rheumatoid arthritis with rheumatoid factor of multiple sites without organ or systems involvement (principal)
CPT/HCPCS: 96365; J3262

== ENCOUNTER 2025-09-09 12:45 | Outpatient (RCR) | payer MEDICARE, OTHER, SELFPAY ==
[2025-09-09 13:20] VITALS: BP 138/58
[2025-09-09 13:27] VITALS: BMI 39.9
[2025-09-09] MEDS: ACTEMRA 100 MG IV (13:40)
[2025-09-09 15:20] VITALS: BP 143/49
== END 2025-09-10 10:31 | disposition home or self-care (01) ==
LOC: OID 12:45
PROVIDERS: ATTENDING PHYSICIAN Internal Medicine; FAMILY PHYSICIAN Family Medicine
DX: M05.79 Rheumatoid arthritis with rheumatoid factor of multiple sites without organ or systems involvement (principal)
CPT/HCPCS: 96413; J3262

== ENCOUNTER 2025-10-07 08:39 | Outpatient (RCR) | payer MEDICARE, OTHER, SELFPAY ==
[2025-10-07 09:30] VITALS: BP 151/79
[2025-10-07] MEDS: ACTEMRA 100 MG IV (09:54)
[2025-10-07 09:59] VITALS: BMI 39.9
[2025-10-07 11:25] VITALS: BP 152/69
== END 2025-10-08 10:39 | disposition home or self-care (01) ==
LOC: OID 08:39
PROVIDERS: ATTENDING PHYSICIAN Internal Medicine; FAMILY PHYSICIAN Family Medicine
DX: M05.79 Rheumatoid arthritis with rheumatoid factor of multiple sites without organ or systems involvement (principal)
CPT/HCPCS: 96365; 96413; J3262